=== PATIENT | male | born 1975 | race Two or more races ===

== ENCOUNTER 2022-07-07 16:47 | Emergency (ER) | payer OTHER, SELFPAY ==
--- NOTE | ~2022-07-07 | CT_ITS ---
EXAMINATION: CT ABDOMEN AND PELVIS WITHOUT CONTRAST CLINICAL INFORMATION: Left flank pain COMPARISON: None TECHNIQUE: Multidetector volumetric imaging was performed from the superior aspect of the liver through the pubic symphysis. Sagittal and coronal reformatted images were obtained on the technologist's workstation. This CT examination was performed using dose optimization techniques as appropriate, variously including the following: *Automated exposure control *Adjustment of mA and/or kV according to patient size (this includes techniques or standardized protocols for targeted exams where dose is matched to indication/reason for exam; i.e. extremities or head) *Use of iterative reconstruction technique DLP: 794 mGy-cm FINDINGS: LUNG BASES: The visualized lung bases are unremarkable. Borderline cardiomegaly. No coronary artery calcification. LIVER, GALLBLADDER, AND BILIARY TREE: The liver is normal in size, shape, and attenuation. No focal hepatic lesion or biliary ductal dilatation is present. The gallbladder is unremarkable with no evidence of radiopaque gallstones, gallbladder wall thickening, or obvious pericholecystic inflammatory changes. PANCREAS: Unremarkable. SPLEEN: Unremarkable. ADRENAL GLANDS: Unremarkable. KIDNEYS AND URETERS: 1-2 mm calcification in the right mid kidney likely a nonobstructing calculus. No right hydronephrosis. There is moderate left hydroureteronephrosis and asymmetric left perinephric fluid and fat stranding. The dilated tortuous left ureter is followed to the urinary bladder where there is a 4 mm left ureterovesical junction calculus. BLADDER: Unremarkable. GASTROINTESTINAL TRACT: Stomach and small bowel are nondilated. No evidence of colitis or diverticulitis. ABDOMINAL WALL: Fat-containing left inguinal hernia. LYMPH NODES: Normal. VASCULAR: Unremarkable. PELVIC VISCERA: Unremarkable. OSSEOUS STRUCTURES: Multilevel degenerative changes. CT/CT abdomen pelvis wo IV con IMPRESSION: 4 mm left ureterovesical junction calculus results in moderate left hydroureteronephrosis and asymmetric left perinephric fluid and fat stranding. Fleischner guidelines were followed.
[2022-07-07 17:38] LABS: MANUAL DIFF FLAG NO
[2022-07-07 17:41] LABS: Appearance Urine Clear; Color Urine Yellow; Glucose Urine UA Negative (Negative); Leukocyte Esterase Urine Negative (Negative); Nitrite Urine Negative (Negative); Specific Gravity - Urine 1.015 (1.005-1.025); Urine Blood Negative (Negative); Urine Ketones Negative (Negative); Urine Protein Negative (Neg-Trace)
[2022-07-07 17:43] LABS: Basophils Percent Auto 0.3 % (0-2); Eosinophils Percent Auto 0.3 % (0-4); Hematocrit 43.8 % (42.0-52.0); Hemoglobin 14.6 g/dl (14.0-18.0); Imm Gran Abs Auto 0.02 X10*3/uL (0.00-0.03); Imm Gran Pct Auto 0.3 % (0.0-0.4); Lymphocytes Absolute Auto 0.5 X10*3/uL (1.2-4.9); Lymphocytes Percent Auto 6.4 % (20-40); Mean Corpuscular HGB Conc 33.3 g/dl (31.0-36.0); Mean Corpuscular Hemoglobin 30.1 pg (27.0-33.0); Mean Corpuscular Volume 90.3 fL (80.0-98.0); Mean Platelet Volume 12.1 fL (9.4-12.4); Monocytes Absolute Auto 0.3 X10*3/uL (0.1-1.2); Monocytes Percent Auto 4.2 % (2-11); Neutrophils Absolute Auto 6.7 x10*3/uL (2.0-8.3); Neutrophils Percent Auto 88.5 % (45-73); Platelet Count 213 X10*3/uL (160-400); Red Blood Count 4.85 X10*6/uL (4.60-5.80); White Blood Count 7.5 X10*3/uL (4.8-10.8)
[2022-07-07 17:57] LABS: Alanine Aminotransferase 129 U/L (0-40); Albumin Level 4.3 g/dL (3.5-5.0); Alkaline Phosphatase 92 U/L (39-117); Anion Gap 10 (12-20); Aspartate Amino Transferase 64 U/L (5-37); Bilirubin Total 0.7 mg/dL (0.0-1.0); Blood Urea Nitrogen 19 mg/dL (9-16); Calcium 9.6 mg/dL (8.4-10.2); Carbon Dioxide 24 mmol/L (22-29); Chloride 111 mmol/L (96-108); Estimated Glomerular Filt Rate 57; Glucose Random 110 mg/dL (60-115); Potassium 5.2 mmol/L (3.3-5.1); Sodium 140 mmol/L (135-145); Total Protein 7.2 g/dL (6.5-8.0)
[2022-07-07 17:58] VITALS: BP 147/67; PULSE 70; RESP 16; TEMP 36.6; O2SAT 97; BMI 28.0
[2022-07-07] MEDS: Sodium Zirconium Cyclosilicate 5 GM POWD.PACK PO (22:00)
--- NOTE | 2022-07-07 22:02 | ED_ITS ---
HPI - Abdominal Pain General Chief Complaint: Abdominal Pain Stated Complaint: ?Kidney stones Time Seen by Provider: 07/07/22 21:58 Source: patient Mode of arrival: ambulatory Limitations: no limitations History of Present Illness HPI narrative: 47 yo male with hx of kidney stones here with c/o L flank pain starting in the afternoon that improved after taking motrin. He had some nausea with the pain. He notes the pain returned. He denies any other PMH but doesn't go to the doctors. He has not had a fever. He denies a change in bowel or bladder habits. MD elicited complaint: flank pain Pertinent past history: kidney stones Onset (ago): hour(s) (7) Pain Consistency: intermittent Location: L flank Severity: severe Quality: stabbing Radiation: L flank Migration to: no migration Exacerbating factors: nothing Relieving factors: nothing Context: history of similar episodes Associated symptoms: nausea Treatments prior to arrival: NSAIDs Related Data Previous Rx's Medication Instructions Recorded morphine 15 mg immediate release 15 mg PO TID PRN pain #12 tabs 07/07/22 tablet ondansetron 4 mg disintegrating 4 mg PO Q8H PRN nausea and 07/07/22 tablet vomiting #20 tabs tamsulosin 0.4 mg capsule 0.4 mg PO DAILY 7 days #7 caps 07/07/22 Allergies Allergy/AdvReac Type Severity Reaction Status Date / Time No Known Allergies Allergy Verified 07/07/22 17:57 Review of Systems Review of Systems Constitutional : No Fever, No Chills ENT/Mouth : No sore throat Eyes: No Eye Pain, No Swelling, No Redness Cardiovascular : No Chest Pain, No SOB Respiratory : No Cough, No Sputum, No Wheezing Gastrointestinal : positive Nausea, no Vomiting, No Diarrhea, positive abdominal pain Genitourinary : no Dysuria, no urinary frequency, no Hematuria, positive Flank Pain, no hesitancy Musculoskeletal : No joint pain, No Myalgias Skin : No Skin Lesions, No rash Neuro : No Weakness, No Numbness, No Headache Psych : No Anxiety/Panic, No Depression Heme/Lymph: No Bruising, No Lymphadenopathy Endocrine : No Polyuria, No Polydipsia All other systems reviewed and are negative [facility] Past Medical History Attestation statement: The following information was validated with the patient. Medical History Renal colic Social History Social History (Updated 07/07/22 @ 22:14 by Cinthia Cesar DO) Patient Tobacco Use Status: Never used Tobacco Smoked in Last 30 Days: No Use of substances other than those prescribed or required for medical reasons: No Advance Directives: No Physical Exam ED Vital Signs: Vital Signs - 24 hr 07/07/22 17:58 07/07/22 22:09 Temperature 98 F 98.1 F Pulse Rate 70 61 Respiratory Rate 16 14 Blood Pressure 147/67 H 166/87 H Pulse Oximetry 97 97 Oxygen Delivery Method Room Air Room Air BMI result Body Mass Index 28.0 Appearance: Alert. Oriented X3. No acute distress. Eyes: Pupils equal, round and reactive to light. ENT: Pharynx normal. Neck: Normal inspection. Neck supple. CVS: Normal heart rate and rhythm. Pulses normal. Respiratory: No respiratory distress. Breath sounds normal. Abdomen: Soft and mild L flank ttp no rebound or guarding Skin: Skin warm and dry. Normal skin color. Normal skin turgor. Extremities: No lower extremity edema. No calf ttp Neuro: Oriented X 3. No motor deficit. No sensory deficit. Course Course Course Narrative: no vomiting, not toxic, well hydrated, 4mm UVJ stone - can be managed as outpatient will start on pain medications and refer to Urology Medical Decision Making Medical Decision Making MDM Narrative: 47 yo male with hx of renal colic here with L flank pain and nausea. At this time given presentation there is a concern for renal colic again. He will need labs, UA, CT scan for obstructing stone. PO medications. He is not toxic appearing and has no rebound on exam. He has no fevers or signs of sepsis. Differential Diagnoses: Differential diagnosis (renal colic, diverticulitis) Lab Attestation: I reviewed the patient's lab results. Independent historian (e.g., spouse, EMS, friend): Independent historian (e.g., spouse, EMS, friend) Clinical information obtained from an independent historian. History obtained from or confirmed by: Spouse Medications Administered Discontinued Medications Generic Name Dose Route Start Last Admin Trade Name Freq PRN Reason Stop Dose Admin Hydromorphone HCl 2 mg 07/07/22 23:04 07/07/22 23:17 Hydromorphone Hcl 2 Mg/Ml Vial IM 07/07/22 23:05 2 mg ONCE ONE Administration Protocol Morphine Sulfate 15 mg 07/07/22 22:09 07/07/22 22:25 Morphine Sulfate Immed Release 15 Mg Tablet PO 07/07/22 22:10 15 mg ONCE ONE Administration Ondansetron HCl 4 mg 07/07/22 22:09 07/07/22 22:26 Ondansetron Odt 4 Mg Tab.Rapdis TRANSLINGU 07/07/22 22:10 4 mg ONCE ONE Administration Sodium Zirconium Cyclosilicate 5 gm 07/07/22 21:38 07/07/22 22:00 Sodium Zirconium Cyclosilicate 5 Gm Powd.Pack PO 07/07/22 21:39 5 gm ONCE ONE Administration Tamsulosin HCl 0.4 mg 07/07/22 22:53 07/07/22 23:00 Tamsulosin Hcl 0.4 Mg Capsule PO 07/07/22 22:54 0.4 mg ONCE ONE Administration will send home with PO morphine for pain control of renal colic Discharge Plan Discharge Clinical Impression: Ureterolithiasis, Elevated liver enzymes Patient Disposition: Home, Self-Care Instructions: Renal Colic (ED) Additional Instructions: alexi por lo menos 40 onzas de agua al d?a. regresa por dolor intenso, fiebre, v?mitos, incapacidad para orinar. si el dolor no se resuelve, llame al ur?logo el lunes. [place] los medicamentos que le hayan dado. Tambi?n puede agregar tylenol, no exceda los 4 gramos por d?a. Prescriptions: New tamsulosin 0.4 mg capsule 0.4 mg PO DAILY 7 Days Qty: 7 0RF morphine 15 mg tablet 15 mg PO TID PRN (Reason: pain) Qty: 12 0RF Rx Instructions: partial fill okay; Partial Fill upon patient request. ondansetron 4 mg tablet,disintegrating 4 mg PO Q8H PRN (Reason: nausea and vomiting) Qty: 20 0RF Referrals: Miko Lora MD [Physician] - 07/10/22 (if not better) Stand Alone Forms: Work/School Release Interventions: ED Discharge Assessment Last Done: 07/07/22 23:21 Discharge Date/Time: 07/07/22 23:22 Print Language: Estonian
[2022-07-07 22:09] VITALS: BP 166/87; PULSE 61; RESP 14; TEMP 36.7; O2SAT 97
[2022-07-07] MEDS: Morphine Sulfate Immed Release 15 MG TABLET PO (22:25)
[2022-07-07] MEDS: Ondansetron ODT 4 MG TAB.RAPDIS TRANSLINGU (22:26)
[2022-07-07] MEDS: Tamsulosin HCL 0.4 MG CAPSULE PO (23:00)
[2022-07-07] MEDS: HYDROmorphone HCl 2 MG/ML VIAL IM (23:17)
--- NOTE | 2022-07-07 23:21 | PC.NURSE ---
Discharge instructions reviewed with pt. Pt verbalizes understanding.
== END 2022-07-07 23:22 | disposition home or self-care (01) ==
PROVIDERS: Emergency Provider Emergency Medicine
DX: N20.1 Calculus of ureter (principal); R79.89 Other specified abnormal findings of blood chemistry; Z79.899 Other long term (current) drug therapy
CPT/HCPCS: 36415; 74176; 80053; 81003; 85025; 99284; J1170

== ENCOUNTER → 2022-07-28 14:21 | Outpatient (BNVA) | payer OTHER, SELFPAY | PROVIDERS: Visit Provider Nurse Practitioner Family | DX: N20.0 Calculus of kidney (principal); R10.9 Unspecified abdominal pain | CPT/HCPCS: 99202 ==

== ENCOUNTER 2022-09-04 14:51 | Outpatient (REF) | payer OTHER, SELFPAY ==
--- NOTE | ~2022-09-04 | US_ITS ---
EXAMINATION: US RETROPERITONEAL LIMITED (RENAL ONLY) CLINICAL INFORMATION: Calculus of kidney. COMPARISON: None TECHNIQUE: Routine grayscale imaging of kidneys is performed. FINDINGS: RIGHT KIDNEY: 12.8 x 5.7 x 6.7 cm (SAG x AP x TRV). The kidney is normal in size, contour, and echogenicity. Renal cortical thickness is normal. No calculi or focal parenchymal lesions. There are mild dilated calyces versus mild hydronephrosis. LEFT KIDNEY: 10.3 x 5.7 x 6.1 cm (SAG x AP x TRV). The kidney is normal in size, contour, and echogenicity. Renal cortical thickness is normal. No calculi or focal parenchymal lesions. No hydronephrosis. US/US renal BI IMPRESSION: 1. Mild right hydronephrosis versus dilated calyces. No echogenic stones seen. 2. The left kidney is unremarkable.
== END 2022-09-04 14:52 | disposition home or self-care (01) ==
LOC: HO.US 14:51
PROVIDERS: Visit Provider Urology
DX: N20.0 Calculus of kidney (principal)
CPT/HCPCS: 76775

== ENCOUNTER → 2022-10-11 13:35 | Outpatient (BNVA) | payer OTHER, SELFPAY | PROVIDERS: Visit Provider Nurse Practitioner Family ==

== ENCOUNTER 2023-04-13 08:59 | Outpatient (REF) | payer OTHER, SELFPAY ==
--- NOTE | ~2023-04-13 | US_ITS ---
EXAMINATION: US RETROPERITONEAL LIMITED (RENAL ONLY) CLINICAL INFORMATION: Calculus of kidney. COMPARISON: Renal ultrasound 09/04/2022. CT of abdomen and pelvis 07/07/2022. TECHNIQUE: Real-time imaging of the kidneys. FINDINGS: RIGHT KIDNEY: 12.9 x 6.4 x 6.5 cm (SAG x AP x TRV). No renal calculi. Limited visualization. 1.3 x 1.3 x 0.8 cm anechoic collection midpole right kidney. Differential considerations include mild pelvocaliectasis and/or peripelvic cyst. LEFT KIDNEY: 13.3 x 6.0 x 5.3 cm (SAG x AP x TRV). Possible calcified vessel lower pole left kidney versus renal calculus. Limited visualization. Left renal peripelvic anechoic structures, largest measured lower pole 1.5 x 2.7 x 1.5 cm, difficult to fully characterize due to limited visualization. Differential considerations include mild pelvocaliectasis and/or peripelvic cysts. US/US renal BI IMPRESSION: 1. Anechoic collection in the peripelvic regions of the bilateral kidneys. Differential considerations include mild pelvocaliectasis and/or peripelvic cysts. CT scan could be considered for further evaluation. 2. No renal calculi identified. 3. Limited visualization.
== END 2023-04-13 09:00 | disposition home or self-care (01) ==
LOC: HO.US 08:59
PROVIDERS: Visit Provider Nurse Practitioner Family
DX: N20.0 Calculus of kidney (principal)
CPT/HCPCS: 76775

== ENCOUNTER 2023-05-04 10:32 | Outpatient (AMB) | payer OTHER, SELFPAY ==
--- NOTE | 2023-05-04 10:37 | MHC.OFFVIS ---
Intake Intake Visit Reasons: 6m follow up/US(set) Intake Note: Patient is present for follow up for ultrasound results/kidney stones (imaging 04/13/23) Urology Medications: none Blood Thinner: none Lather Apprentice Required: Yes Information Interpreted: non-clinical & clinical Accompanied by: Unknown Allergies No Known Allergies Allergy (Verified 05/04/23 11:23) Medication List - Last Reconciled 05/04/23 by TRISTEN Moore No Known Home Meds HPI HPI Comments History of Present Illness Details Guillermo is a pleasant 48 year Beninese speaking male patient was accompanied by his girlfriend at today's visit. He presents to the office today for follow-up of his nephrolithiasis. Recent renal ultrasound results reviewed with the patient today. Right kidney with no calculi. 1.3 x 1.3 x 0.8 cm anechoic collection midpole right kidney. Differential considerations include mild pelvocaliectasis and/or peripelvic cyst. Left kidney possibly calcified vessels lower pole left kidney versus renal calculus. Limited visualization. Left renal peripelvic anechoic structures, largest measured lower pole 1.5 x 2.7 x 1.5 cm, difficult to fully characterize due to limited visualization. Differential considerations include mild pelvocaliectasis and/or peripelvic cysts. CT scan could be considered for further evaluation per radiology report. In discussion with the patient today he reports noting episodes of gross hematuria with left-sided flank pain radiating to lower abdominal area approximately 2 weeks ago recently however did not seek medical treatment as he had this follow-up scheduled. He reports gross hematuria he had been experiencing has since subsided over the last 1-2 weeks however he continues with intermittent left-sided flank pain radiating to lower abdominal area. He currently denies any bothersome urinary issues or concerns. He denies urinary urgency, urinary frequency, incontinence, nocturia, hematuria, dysuria, foul smelling urine, changes to urinary stream, fever, and or chills. He is happy with his current voiding parameters. Patient with a history of nephrolithiasis discussed possibility of passage of stone given patient's symptoms. Discussed at length potential causes for gross hematuria. Discussed obtaining CT urogram, urine cytology, and in office cystoscopy for further assessment evaluation. Urinalysis today with microscopic hematuria otherwise within normal limits. [facility] Medical History Renal colic Social History Patient Tobacco Use Status: Never used Tobacco Review of Systems Const Reports no additional complaints Eyes Reports no additional complaints ENT Reports no additional complaints Card Reports no additional complaints Resp Reports no additional complaints GI Reports no additional complaints Reports as per HPI Musc Reports no additional complaints Neuro Reports no additional complaints Psych Reports no additional complaints Endo Reports no additional complaints Physical Exam Const General: cooperative Orientation/consciousness: patient oriented x3 Resp Effort & Inspection: able to speak in complete sentences Neuro General: patient oriented x3 Psych Mental Status: mental status grossly normal Speech and movement: Clear speech present Affect: normal affect Attitude: cooperative Thought process: Normal thought process present Thought content: Normal thought content present Insight: Good insight present (Psych) Judgement: Good judgement present (Psych) Results AMB Urinalysis, Automated UA Leukoctes 0 Aleksey/uL Last Edit by Cristopher Gaines on 05/04/23 11:02 UA Nitrite Negative Last Edit by Cristopher Gaines on 05/04/23 11:02 UA Urobilinogen 0.2 mg/dL Last Edit by Cristopher Gaines on 05/04/23 11:02 UA Protein 15 mg/dL Last Edit by Cristopher Gaines on 05/04/23 11:02 UA pH 5.5 Last Edit by Cristopher Gaines on 05/04/23 11:02 UA Blood 200 Alli/uL Last Edit by Cristopher Gaines on 05/04/23 11:02 UA Specific [place]anger 1.030 Last Edit by Cristopher Gaines on 05/04/23 11:02 UA Ketone Negative Last Edit by Cristopher Gaines on 05/04/23 11:02 UA Bilirubin 0 mg/dL Last Edit by Cristopher Gaines on 05/04/23 11:02 UA Glucose 0 mg/dL Last Edit by Cristopher Gaines on 05/04/23 11:02 Results Reviewed Results Reviewed: Laboratory Last Values Urine pH (Auto) 5.5 05/04/23 10:43 Specific [place]anger (Auto) 1.030 05/04/23 10:43 Urine Protein (Auto) 15 mg/dL 05/04/23 10:43 Glucose (UA)(Auto) 0 mg/dL 05/04/23 10:43 Urine Ketones (Auto) Negative 05/04/23 10:43 Urine Blood (Auto) 200 Alli/uL 05/04/23 10:43 Urine Nitrite (Auto) Negative 05/04/23 10:43 Urine Bilirubin (Auto) 0 mg/dL 05/04/23 10:43 Urine Urobilinogen (Auto) 0.2 mg/dL 05/04/23 10:43 Leukocyte Esterase (Auto) 0 Aleksey/uL 05/04/23 10:43 Ordering Physician: Tamara Guzman Date of Service: 04/13/23 EXAMINATION: US RETROPERITONEAL LIMITED (RENAL ONLY) FINDINGS: RIGHT KIDNEY: 12.9 x 6.4 x 6.5 cm (SAG x AP x TRV). No renal calculi. Limited visualization. 1.3 x 1.3 x 0.8 cm anechoic collection midpole right kidney. Differential considerations include mild pelvocaliectasis and/or peripelvic cyst. LEFT KIDNEY: 13.3 x 6.0 x 5.3 cm (SAG x AP x TRV). Possible calcified vessel lower pole left kidney versus renal calculus. Limited visualization. Left renal peripelvic anechoic structures, largest measured lower pole 1.5 x 2.7 x 1.5 cm, difficult to fully characterize due to limited visualization. Differential considerations include mild pelvocaliectasis and/or peripelvic cysts. US/US renal BI IMPRESSION: 1. Anechoic collection in the peripelvic regions of the bilateral kidneys. Differential considerations include mild pelvocaliectasis and/or peripelvic cysts. CT scan could be considered for further evaluation. 2. No renal calculi identified. 3. Limited visualization. Assessment & Plan Assessment & Plan (1) Flank pain: Code(s): R10.9 - Unspecified abdominal pain (2) Nephrolithiasis: Code(s): N20.0 - Calculus of kidney (3) Gross hematuria: Code(s): R31.0 - Gross hematuria Plan In office urinalysis results reviewed with the patient today; as noted above; will send for urine cytology Will obtain CT urogram for further assessment evaluation. BUN and creatinine ordered for imaging. Discussed, educated, stressed the importance of drinking plenty of water daily. Discussed seeking medical treatment if symptoms arise Patient currently denies any bothersome urinary issues. Discussed at length potential causes for gross hematuria. Start Flomax and prednisone as discussed and prescribed. Discussed possible near future in office cystoscopy if gross hematuria reoccurs. Follow-up in 1-2 weeks with with imaging and labs to be completed prior; or sooner with any issues, concerns, and or questions. Orders: Orders CT urogram 05/04/23 R31.0 - Gross hematuria Blood Urea Nitrogen 05/04/23 N20.0 - Calculus of kidney, R10.9 - Unspecified abdominal pain, R31.0 - Gross hematuria AMB Urinalysis Automated 05/04/23 Z13.9 - Encounter for screening, unspecified Creatinine 05/04/23 N20.0 - Calculus of kidney, R10.9 - Unspecified abdominal pain, R31.0 - Gross hematuria Urine Cytology 05/04/23 R31.0 - Gross hematuria Medications: New prednisone 20 mg PO daily 5 days 5 tabs 0RF tamsulosin 0.4 mg PO daily 14 days 14 caps 1RF Patient Instructions: The patient had an opportunity to ask questions regarding the treatment plan. All questions were answered. Physical exam, labs, and imaging were discussed and reviewed in detail. As well as risks, benefits, and discussion of treatment choices. No major barriers to understanding were identified. The patient expressed understanding and agreement with the above treatment plan. The patient was made aware they should contact our office by phone for worsening of their current condition, the appearance of new symptoms, or with any questions or concerns. Compliance is encouraged with any medications and follow up testing that is ordered. It is a privilege to be allowed the opportunity to participate in? your urological care.? Again, if you have any questions or concerns If you have any questions or concerns please do not hesitate to contact me. The office is [phone]. This note is constructed using voice recognition software. While every effort has been made to ensure accuracy paper coating machine operator errors may have been included. Yours sincerely, TRISTEN Moore Coding Level of Care Code Est Pt Level 4 (01398) Diagnoses Flank pain R10.9 Nephrolithiasis N20.0 Gross hematuria R31.0
== END 2023-05-04 11:26 | disposition home or self-care (01) ==
PROVIDERS: Visit Provider Nurse Practitioner Family
DX: R10.9 Unspecified abdominal pain (principal); N20.0 Calculus of kidney; R31.0 Gross hematuria
CPT/HCPCS: 99214

== ENCOUNTER 2023-05-04 10:32 | Outpatient (REF) | payer OTHER, SELFPAY ==
[2023-05-04 13:51] LABS: Blood Urea Nitrogen 21 mg/dL (9-16); Estimated Glomerular Filt Rate > 60
== END 2023-05-04 10:33 | disposition home or self-care (01) ==
LOC: HO.LAB 10:32
PROVIDERS: Visit Provider Nurse Practitioner Family
DX: R10.9 Unspecified abdominal pain (principal); N20.0 Calculus of kidney; R31.0 Gross hematuria
CPT/HCPCS: 36415; 81003; 82565; 84520; 99212

== ENCOUNTER 2023-05-04 16:17 | Outpatient (REF) | payer OTHER, SELFPAY | END 2023-05-04 16:18 | disposition home or self-care (01) | LOC: HO.LNP 16:17 | PROVIDERS: Visit Provider Nurse Practitioner Family | DX: R31.0 Gross hematuria (principal) | CPT/HCPCS: 88112 ==

== ENCOUNTER 2023-06-08 08:46 | Outpatient (REF) | payer OTHER, SELFPAY ==
--- NOTE | ~2023-06-08 | CT_ITS ---
EXAMINATION: CT ABDOMEN AND PELVIS WITHOUT AND WITH CONTRAST CLINICAL INFORMATION: Gross hematuria. COMPARISON: CT imaging from 07/07/2022. Renal ultrasound from 04/13/2023. TECHNIQUE: Noncontrast CT of the abdomen and pelvis is performed followed by split bolus contrast-enhanced images using 85 mL Omnipaque 350 contrast.? Postcontrast imaging is performed during the combined nephrogram and excretion phase. Sagittal and coronal reformatted images were obtained on the technologist's workstation for both the precontrast and postcontrast phases. This CT examination was performed using dose optimization techniques as appropriate, variously including the following: *Automated exposure control *Adjustment of mA and/or kV according to patient size (this includes techniques or standardized protocols for targeted exams where dose is matched to indication/reason for exam; i.e. extremities or head) *Use of iterative reconstruction technique DLP: 1054 mGy-cm FINDINGS: LUNG BASES: No pulmonary consolidation or pleural effusion. HEPATOBILIARY: Liver has normal size and contour. A simple cyst in the left lobe of liver measures up to 1.3 cm maximum dimension. Gallbladder has a normal appearance. No radiopaque stones, wall thickening or pericholecystic fluid. No dilated bile ducts. PANCREAS: No edema, pancreatic ductal dilatation or mass. SPLEEN: Normal. ADRENAL GLANDS: Normal. KIDNEYS AND URETERS: Kidneys are normal in size and enhance symmetrically. No renal stones or hydronephrosis. No perinephric edema or perinephric fluid collection. There are clustered simple peripelvic cysts of the left kidney. No renal imaging follow-up is recommended for simple cysts. There is normal contrast excretion into the nondilated collecting systems. There are segments of each ureter that are not well opacified on pyelographic phase images likely from peristalsis at time of imaging. There is no overt urothelial thickening. Two stones are present within the distal left ureter just proximal to the ureterovesical junction. The more proximal stone measures up to 0.4 cm maximum dimension and distal stone 0.7 cm maximum dimension. Despite presence of these stones, there is no associated hydroureter. BLADDER: Normal. No calculi or wall thickening. BOWEL AND PERITONEUM: Stomach is unremarkable. No dilated loops of bowel. No overt bowel wall thickening or mesenteric fat stranding. No free fluid or pneumoperitoneum. ABDOMINAL WALL: No acute abnormality. Again noted is fat within the left inguinal canal which has appearance of the so-called canal lipoma. There is no visible herniation of peritoneal fat into the inguinal canal. VASCULATURE: Abdominal aorta is normal in its branches are widely patent. Inferior vena cava and renal veins are normal. LYMPH NODES: No pathologic sized lymph nodes in the abdomen or pelvis. No inguinal lymphadenopathy. PELVIC VISCERA: Mildly enlarged prostate gland measures 4.5 x 3.8 x 4.7 cm. No pelvic free fluid. MUSCULOSKELETAL: Mild to moderate multilevel discovertebral degenerative change of the lumbar spine. There is facet arthropathy at L5-S1. Minimal degenerative retrolisthesis at L1-L2, L2-L3 and L3-L4. CT/CT urogram IMPRESSION: * Although two stones are present within the distal ureter just proximal to the UV junction, there is no associated hydroureter or hydronephrosis. No renal stones. * No evidence of an inflammatory or neoplastic disease process along urinary tracts. * There is mild prostatomegaly.
[2023-06-08] MEDS: iohexoL 350 MG/ML 100 ML INFUS..BTL IV (09:55)
== END 2023-06-08 08:47 | disposition home or self-care (01) ==
LOC: HO.CT 08:46
PROVIDERS: Visit Provider Nurse Practitioner Family
DX: R31.0 Gross hematuria (principal)
CPT/HCPCS: 74178; Q9967

== ENCOUNTER 2023-06-19 09:32 | Outpatient (AMB) | payer OTHER, SELFPAY ==
--- NOTE | 2023-06-19 09:33 | MHC.OFFVIS ---
Intake Intake Visit Reasons: 2w/CT(set) Intake Note: Patient is present for follow up for ct scan results/kidney stones (imaging 06/08/23) Urology Medications: none Blood Thinner: none Chief Medical Officer Required: Yes Information Interpreted: non-clinical & clinical Accompanied by: Unknown Allergies No Known Allergies Allergy (Verified 06/19/23 10:09) Medication List - Last Reconciled 06/19/23 by TRISTEN Moore prednisone 20 mg PO DAILY 5 days tamsulosin 0.4 mg PO BEDTIME 14 days tramadol 50 mg PO Q8H PRN HPI HPI Comments History of Present Illness Details Guillermo is a pleasant 48 year Turkmen speaking male patient who is accompanied by his girlfriend at today's visit. He presents to the office today for follow-up of his nephrolithiasis. Recent CT KUB UB results reviewed with the patient today. Kidneys are normal in size enhance symmetrically. There are clustered simple peripelvic cysts of the left kidney. No renal imaging follow-up is recommended for simple cysts per radiology report. There is normal contrast excretion into the nondilated collecting systems. There are segments of each ureter that are not well opacified on pyelographic phase images likely from peristalsis at time of imaging. There is no overt urothelial thickening. Two stones are present within the distal left ureter just proximal to the ureterovesical junction. The more proximal stone measures up to 0.4 cm maximum dimension and distal stone 0.7 cm maximum dimension. Despite presence of these stones, there is no associated hydroureter. The bladder is normal with no calculi or wall thickening. When asked patient reports to be experiencing ongoing left-sided flank pain for over 1 month now. However, states he has noted over the last 1-2 days pain is more sharp and ongoing. Discussed at length surgical intervention regarding stones. Discussed risks and benefits of surgical intervention; cystoscopy, retrograde, ureteroscopy, possible lithotripsy/stone basketing and stent on the left side. He denies incontinence, hematuria, dysuria, foul-smelling urine, changes to urinary stream, fever, and or chills. In office urinalysis results reviewed with the patient today. He otherwise offers no other issues or concerns at this time. [facility] Medical History Renal colic Patient Tobacco Use Status: Never used Tobacco Review of Systems Const Reports no additional complaints Eyes Reports no additional complaints ENT Reports no additional complaints Card Reports no additional complaints Resp Reports no additional complaints GI Reports no additional complaints Reports as per HPI Musc Reports no additional complaints Neuro Reports no additional complaints Psych Reports no additional complaints Endo Reports no additional complaints Physical Exam Const General: cooperative Orientation/consciousness: patient oriented x3 Resp Effort & Inspection: able to speak in complete sentences General: Yes CVA tenderness on the left Back/Spine/Pelvis Back: CVA tenderness Neuro General: patient oriented x3 Psych Mental Status: mental status grossly normal Speech and movement: Clear speech present Affect: normal affect Attitude: cooperative Thought process: Normal thought process present Thought content: Normal thought content present Insight: Good insight present (Psych) Judgement: Good judgement present (Psych) Results AMB Urinalysis, Automated UA Leukoctes 0 Aleksey/uL Last Edit by [employer] on 06/19/23 09:57 UA Nitrite Negative Last Edit by [employer] on 06/19/23 09:57 UA Urobilinogen 0.2 mg/dL Last Edit by [employer] on 06/19/23 09:57 UA Protein 30 mg/dL Last Edit by [employer] on 06/19/23 09:57 UA pH 6.0 Last Edit by [employer] on 06/19/23 09:57 UA Blood 25 Alli/uL Last Edit by [employer] on 06/19/23 09:57 UA Specific [place] 1.030 Last Edit by [employer] on 06/19/23 09:57 UA Ketone Negative Last Edit by [employer] on 06/19/23 09:57 UA Bilirubin 0 mg/dL Last Edit by [employer] on 06/19/23 09:57 UA Glucose 0 mg/dL Last Edit by [employer] on 06/19/23 09:57 Results Reviewed Results Reviewed: Laboratory Last Values Urine pH (Auto) 6.0 06/19/23 09:38 Specific [place] (Auto) 1.030 06/19/23 09:38 Urine Protein (Auto) 30 mg/dL 06/19/23 09:38 Glucose (UA)(Auto) 0 mg/dL 06/19/23 09:38 Urine Ketones (Auto) Negative 06/19/23 09:38 Urine Blood (Auto) 25 Alli/uL 06/19/23 09:38 Urine Nitrite (Auto) Negative 06/19/23 09:38 Urine Bilirubin (Auto) 0 mg/dL 06/19/23 09:38 Urine Urobilinogen (Auto) 0.2 mg/dL 06/19/23 09:38 Leukocyte Esterase (Auto) 0 Aleksey/uL 06/19/23 09:38 Date of Service: 06/08/23 EXAMINATION: CT ABDOMEN AND PELVIS WITHOUT AND WITH CONTRAST FINDINGS: LUNG BASES: No pulmonary consolidation or pleural effusion. HEPATOBILIARY: Liver has normal size and contour. A simple cyst in the left lobe of liver measures up to 1.3 cm maximum dimension. Gallbladder has a normal appearance. No radiopaque stones, wall thickening or pericholecystic fluid. No dilated bile ducts. PANCREAS: No edema, pancreatic ductal dilatation or mass. SPLEEN: Normal. ADRENAL GLANDS: Normal. KIDNEYS AND URETERS: Kidneys are normal in size and enhance symmetrically. No renal stones or hydronephrosis. No perinephric edema or perinephric fluid collection. There are clustered simple peripelvic cysts of the left kidney. No renal imaging follow-up is recommended for simple cysts. There is normal contrast excretion into the nondilated collecting systems. There are segments of each ureter that are not well opacified on pyelographic phase images likely from peristalsis at time of imaging. There is no overt urothelial thickening. Two stones are present within the distal left ureter just proximal to the ureterovesical junction. The more proximal stone measures up to 0.4 cm maximum dimension and distal stone 0.7 cm maximum dimension. Despite presence of these stones, there is no associated hydroureter. BLADDER: Normal. No calculi or wall thickening. BOWEL AND PERITONEUM: Stomach is unremarkable. No dilated loops of bowel. No overt bowel wall thickening or mesenteric fat stranding. No free fluid or pneumoperitoneum. ABDOMINAL WALL: No acute abnormality. Again noted is fat within the left inguinal canal which has appearance of the so-called canal lipoma. There is no visible herniation of peritoneal fat into the inguinal canal. VASCULATURE: Abdominal aorta is normal in its branches are widely patent. Inferior vena cava and renal veins are normal. LYMPH NODES: No pathologic sized lymph nodes in the abdomen or pelvis. No inguinal lymphadenopathy. PELVIC VISCERA: Mildly enlarged prostate gland measures 4.5 x 3.8 x 4.7 cm. No pelvic free fluid. MUSCULOSKELETAL: Mild to moderate multilevel discovertebral degenerative change of the lumbar spine. There is facet arthropathy at L5-S1. Minimal degenerative retrolisthesis at L1-L2, L2-L3 and L3-L4. IMPRESSION: * Although two stones are present within the distal ureter just proximal to the UV junction, there is no associated hydroureter or hydronephrosis. No renal stones. * No evidence of an inflammatory or neoplastic disease process along urinary tracts. * There is mild prostatomegaly. Assessment & Plan Assessment & Plan (1) Flank pain: Code(s): R10.9 - Unspecified abdominal pain (2) Nephrolithiasis: Code(s): N20.0 - Calculus of kidney Plan: Ureteroscopy We discussed the nature of the decision and reasonable alternatives for performing ureteroscopy. Options such as medical therapy were discussed. Interventions include chemical dissolution, ESWL, ureteroscopy with laser lithotripsy and stent placement, PCNL. The relative uncertainties and benefits related to each alternate procedure were adequately discussed. General surgical risks including, but not limited to - pain, bleeding, infection, myocardial infarction, pulmonary embolus, deep vein thrombosis and cerebrovascular accident which may result in further hospitalization were discussed.? Full disclosure of the procedure as well as all major risks, benefits and complications were discussed including but not limited to damage to the urethra, bladder and kidney infection, damage to the ureter, stent migration or malposition, scarring to the renal pelvis, remnant stone fragments, subsequent stone passage with need for secondary procedures. The overall secondary procedure rate is approximately 10-15%.? The overall clearance rate is approximately 90-95%. Success of the procedure in the short-term does not necessarily guarantee that long-term success will be maintained. Suitable follow up will need to be maintained. The patient showed understanding of discussion and wishes to proceed with - cystoscopy, retrograde, ureteroscopy, possible lithotripsy/stone basketing and stent on the left side Plan In office urinalysis results reviewed with the patient today; as noted above. Recent CT results reviewed with the patient and his significant other at today's office visit; as noted above Discussed at length surgical intervention; risks and benefits Take Flomax and prednisone as discussed and prescribed Start tramadol as needed for pain Discussed at length potential causes of nephrolithiasis. Discussed and stressed the importance of drinking plenty of water daily. Will schedule for surgical procedure as discussed Follow-up status post surgical procedure per Dr. Zhu's order; or sooner with any issues, concerns, and or questions. Orders: Orders AMB Urinalysis Automated 06/19/23 Z13.9 - Encounter for screening, unspecified Medications: New prednisone 20 mg PO DAILY 5 tabs 0RF 5 days N20.0 - Calculus of kidney tramadol 50 mg PO Q8H PRN 15 tabs 0RF pain N43.3 - Hydrocele, unspecified tamsulosin 0.4 mg PO BEDTIME 14 caps 0RF 14 days N20.0 - Calculus of kidney Patient Instructions: The patient had an opportunity to ask questions regarding the treatment plan. All questions were answered. Physical exam, labs, and imaging were discussed and reviewed in detail. As well as risks, benefits, and discussion of treatment choices. No major barriers to understanding were identified. The patient expressed understanding and agreement with the above treatment plan. The patient was made aware they should contact our office by phone for worsening of their current condition, the appearance of new symptoms, or with any questions or concerns. Compliance is encouraged with any medications and follow up testing that is ordered. It is a privilege to be allowed the opportunity to participate in? your urological care.? Again, if you have any questions or concerns If you have any questions or concerns please do not hesitate to contact me. The office is [phone]. This note is constructed using voice recognition software. While every effort has been made to ensure accuracy logging rafter laborer errors may have been included. Yours sincerely, TRISTEN Moore Coding Level of Care Code Est Pt Level 4 (92802) Diagnoses Flank pain R10.9 Nephrolithiasis N20.0
== END 2023-06-19 10:03 | disposition home or self-care (01) ==
PROVIDERS: Visit Provider Nurse Practitioner Family
DX: R10.9 Unspecified abdominal pain (principal); N20.0 Calculus of kidney
CPT/HCPCS: 99214

== ENCOUNTER → 2023-06-19 09:32 | Outpatient (BNVA) | payer OTHER, SELFPAY | PROVIDERS: Visit Provider Nurse Practitioner Family | DX: N20.0 Calculus of kidney (principal); R10.9 Unspecified abdominal pain | CPT/HCPCS: 81003; 99212 ==

== ENCOUNTER 2023-06-26 10:48 | Day surgery (SDC) | payer OTHER, SELFPAY ==
--- NOTE | 2023-06-25 11:01 | HO.ANESPROP2 ---
Documented by User: Portia Hunt NP 06/25/23 11:01 HPI - Anesthesia Eval Consult details Narrative: 48yo M for Left Cystoscopy, Ureteroroscopy, Retro, Laser,with poss stent [facility] Active Problems Active Problems: All Active Problems (Updated 05/04/23 @ 11:16 by TRISTEN Moore) Gross hematuria (Acute) Flank pain (Acute) Nephrolithiasis (Acute) Past Medical History Medical History Renal colic Social History Patient Tobacco Use Status: Never used Tobacco Advance Directives: No Advance Directives Information Provided: Yes Meds Allergies Allergy/AdvReac Type Severity Reaction Status Date / Time No Known Allergies Allergy Verified 06/19/23 10:09 Assessment and Plan Assessment Anesthesia Assessment: Chart Reviewed Documented by User: Johnnie Stoddard MD 06/26/23 11:16 [facility] Past Medical History Medical History Renal colic Family History Family history of problems with anesthesia: No Surgical History History of Problems with Anesthesia: No Social History Patient Tobacco Use Status: Never used Tobacco Advance Directives: No Advance Directives Information Provided: Yes Meds Allergies Allergy/AdvReac Type Severity Reaction Status Date / Time No Known Allergies Allergy Verified 06/19/23 10:09 Exam Airway Mallampati Class: II TM Dist: >3cm Neck ROM: Full Assessment and Plan Assessment Anesthesia Assessment: Anesthesia Plan Discussed Final Anesthetic Review Family History of Problems with Anesthesia: No History of Problems with Anesthesia: No NPO: Yes ASA Class: II Final Preanesthetic Review: No Changes in Pt Med Stat, Meds/Allgs Chart Reviewed, Consent Obtained/Reviewed and Anes Risks/Benef Reviewed Patient Risk: Low Procedure Risk: Low Anesthetic Plan Anesthetic Plan: GA Disposition: Standard PACU
[2023-06-26] VITALS (7 sets, daily range): BP systolic 115–137; BP diastolic 81–90; PULSE 64–77; RESP 14–18; TEMP 36.2–36.6; O2SAT 96–98; BMI 30.7
--- NOTE | ~2023-06-26 | FL_ITS ---
EXAMINATION: XR FLUOROSCOPY WITH IMAGES CLINICAL INFORMATION: Left stone. COMPARISON: Previous CT of the abdomen and pelvis May 2023 TECHNIQUE: Fluoroscopy Supervised By: Dr. Torres. Fluoroscopy Time: 26.4 seconds. Cumulative Dose: 11.82 mGy. DAP: Not available on C-arm. Images: 4. FINDINGS: Initial images demonstrate opacification of the left distal ureter. There are 2 filling defects questionable for stones. Final images demonstrate left internal ureteral stent in satisfactory position. FL/FL guidance in OR IMPRESSION: Fluoroscopy guidance for left retrograde exam and stent placement
[2023-06-26] MEDS: Lactated Ringers 1,000 ML 100 ML IVCONT (11:25)
--- NOTE | 2023-06-26 12:25 | MHC.SHP ---
Pre-Procedural Eval Section A Date of Service: 06/26/23 The patient is an INPATIENT: No The History & Physical has been completed within 30 days and I have reviewed it.: Yes Section B Chief Complaint: Calculus of kidney,Gross hematuria Allergies: Allergies Allergy/AdvReac Type Severity Reaction Status Date / Time No Known Allergies Allergy Verified 06/26/23 11:27 Plan Diagnosis/Plan: Unchanged I have reviewed the history and physical and performed a pertinent physical examination on my patient. No changes have occurred unless specified. Plan for Cystoscopy, left ureteroscopy, possible laser lithotripsy, possible ureteral stent. Risks discussed included but not limited to, possible need to repeat procedure if stone is not completely fragmented, Irritative voiding symptoms, bladder spasms, urgency, blood in urine. Time Spent With Patient Time: Total time managing care of this patient today ____ minutes.
--- NOTE | 2023-06-26 14:41 | P.OP_ITS ---
Operative Note Operative Note Date of Service: 06/26/23 Narrative: PreOperative Diagnosis:?? Left ureteral stones Post Operative Diagnosis:?? Left ureteral stones Procedure: - cystoscopy, left retrograde, ureteroscopy laser lithotripsy stent insertion, 6 Cameroonian by salvador-lenth cm Surgeon:?Dr Rimma Torres Anesthesia:? General Indications for procedure: Left flank pain secondary to left ureteral stones. CT KUB noted two distal ureteral stones. Procedure: After informed consent was verified the patient was brought to the operating placed on the OR table in supine position.? General Anesthesia was administered per protocol.? The patient was placed in lithotomy position, prepped and draped in the usual sterile fashion.? Safety pause time-out and side of surgery confirmed.? Antibiotics confirmed. 2% lidocaine jelly 10 mL was passed transurethrally. A 22 Cameroonian cystoscope was inserted transurethrally, the bulbous urethra was within normal limits. The prostatic urethra was nonobstructive. The bladder was visualized.? Both ureteric orifices were in normal position. An open-ended ureteral catheter was passed into the left ureteral orifice and a retrograde examination was performed. There was a filling defect in the distal ureter and dilatation of the proximal ureter. A g uidewire was passed through the ureteral catheter into the kidney. The balloon dilator size 12fr x 4 cm was passed over the guide -wire the balloon was inflated to 10 mmHg and the intramural ureter was dilated for 45 seconds. The balloon was deflated and removed. After removing the balloon dilator the cystoscope was removed, the guidewire was used as the safety and was attached to the draping. The semi rigid ureteroscope was passed along side the guidewires to the level of the stones in the ureter. Laser lithotripsy of the stone was done using the 365 fiber with a settings 0.8 joules by 8 hertz. There was good fragmentation of the stone. The 0 degree basket was passed through the ureteroscope, to remove stone fragents to send for analysis. The ureteroscope was removed. The cystoscope was passed over the safety guidewire. A? 6 Cameroonian by multi-length cm stent was placed into the ureter and renal pelvis under a combination of fluoroscopy and direct visualization. The bladder was emptied.? The rigid cystoscope was removed. ? The patient tolerated the procedure well and was brought to the recovery room in stable condition. Complications: None Drains: Ureteral stent as dictated above
[2023-06-26] MEDS: Phenazopyridine HCL 200 MG TABLET PO (14:57)
[2023-07-03 20:13] LABS: Stone Source KIDNEY STONE
== END 2023-06-26 15:20 | disposition home or self-care (01) ==
PROVIDERS: Visit Provider Urology
PROC: (CPT 52356; principal; 2023-06-26 13:50)
DX: N20.1 Calculus of ureter (principal); R10.9 Unspecified abdominal pain; N28.1 Cyst of kidney, acquired; N40.0 Benign prostatic hyperplasia without lower urinary tract symptoms
CPT/HCPCS: 52356; 82365; 88300; C1726; C1758; C1769; C2617; J0690; J1100; J1885; J2405; J2704; J3010; Q9967

== ENCOUNTER → 2023-06-26 10:48 | Outpatient (BNV) | payer OTHER, SELFPAY | PROVIDERS: Visit Provider Urology | DX: N20.1 Calculus of ureter (principal) | CPT/HCPCS: 52356; 74420 ==

== ENCOUNTER 2023-07-04 15:20 | Outpatient (AMB) | payer OTHER, SELFPAY ==
--- NOTE | 2023-07-04 15:59 | A.OFFVIS_ITS ---
Intake Intake Visit Reasons: S/P Cysto special/stent removal Intake Note: Patient presents today for a CYSTOSCOPY/STENT REMOVAL Procedure: Meds: Tamsulosin Allergies to Antibiotic: No Known Allergies Blood Thinner: None Urinalysis test cleared for Cysto Disposable Uro-G Cystoscope Cannula: Lot: [id number] Exp: 12/06/2024 Computer Systems Information Director Required: Yes Computer Systems Information Director Language: Argentine Information Interpreted: non-clinical & clinical Clinical Laboratory Manager: Clinical Laboratory Manager Present Accompanied by: Self / Same As Patient Allergies No Known Allergies Allergy (Verified 07/04/23 16:01) HPI HPI Comments History of Present Illness Details Guillermo is a 48-year-old male who presents today to the office for a follow-up. 07/04/2023? He is followed today for stent removal. He was last seen by me on 06/26/2023, s/p left ureteroscopy laser lithotripsy stone, stent insertion. Here for stent removal. I reviewed the stone analysis results from 06/26/2023 revealed calcium oxalate. Reviewed diet modification with the patient. I have discussed at length diet modification to decrease risk of forming more kidney stones. I have discussed low oxalate diet and specific foods to avoid including certain green leafy vegetables, chocalate, nuts, tea, beets, rubarb; low sodium, decreased use of animal protein and the importance of hydration drinking up to 2-2.5 liters of fluids and use of adding lemon to water to increase citrate in the diet. A pamphlet is also provided today. Stent removed without difficulty. 07/04/2023: 24-hour urine collection was ordered. [facility] Medical History Renal colic Surgical History (Updated 07/04/23 @ 16:02 by NIDA Samson) Hx of cystoscopy Social History Patient Tobacco Use Status: Never used Tobacco Office Procedures Cystoscopy Consent Discussed risk and benefit or proposed procedure with the patient. Information consent for procedure given to the patient. Discussed technical aspects, risks, benefits and alternatives in full. Addressed all of the patient's questions and concerns regarding the procedure. The patient demonstrated knowledge and understanding. They wish to proceed with this procedure. Preparation The patient was prepped in the usual manner. A fur storage clerk was present and in the room. Genitalia was prepped with betadine solution in a sterile manner. Lidocaine Jelly 2% was placed into the urethra and 16Fr flexible Olympus cystoscope was inserted into the meatus after adequate lubrication. Procedure Time out per protocol performed. Bladder Inspection Cystoscopy findings: mild edema ureteral orifice which is expected, distal end of ureteral stent visualized. The grasping forceps were used and the stent was removed without difficulty. [id number] DISPOSABLE SCOPE URO-G FLEXIBLE SCOPE Procedure code (CPT) selection complete Office Meds lidocaine HCl 2 % mucosal jelly in applicator Performing Provider: Rimma Torres MD Performing Location: [facility] Administered by: Laura Hull RN on 07/04/23 15:59 Dose Route Admin Location Dispensed Lot Number Expiration Date ND Hog Ribber 10 mL intra-urethral 20 mL naproxen 500 mg tablet Performing Provider: Rimma Torres MD Performing Location[place] [facility] Administered by: Laura Hull RN on 07/04/23 15:59 Dose Route Admin Location Dispensed Lot Number Expiration Date NDC Hog Ribber 500 mg PO 1 tab ciprofloxacin HCl 500 mg tablet Performing Provider: Rimma Torrse MD Performing Location: [facility] Administered by: Laura Hull RN on 07/04/23 15:59 Dose Route Admin Location Dispensed Lot Number Expiration Date ND Hog Ribber 500 mg PO 1 tab Results AMB Urinalysis, Automated UA Leukoctes 70 Aleksey/uL Last Edit by NIDA Samson on 07/04/23 16:12 1+ Rani Small 07/04/23 16:12 UA Nitrite Negative Last Edit by NIDA Samson on 07/04/23 16:12 UA Urobilinogen 0.2 mg/dL Last Edit by NIDA Samson on 07/04/23 16:1 2 UA Protein 300 mg/dL Last Edit by NIDA Samson on 07/04/23 16:12 3+ Rani Small 07/04/23 16:12 UA pH 6.0 Last Edit by NIDA Samson on 07/04/23 16:12 UA Blood 200 Alli/uL Last Edit by NIDA Samson on 07/04/23 16:12 3+ Rani Small 07/04/23 16:12 UA Specific [place] 1.030 Last Edit by NIDA Samson on 07/04/23 16: 12 UA Ketone Negative Last Edit by NIDA Samson on 07/04/23 16:12 UA Bilirubin 0 mg/dL Last Edit by NIDA Samson on 07/04/23 16:12 UA Glucose 0 mg/dL Last Edit by NIDA Samson on 07/04/23 16:12 Results Reviewed Results Reviewed: Laboratory Last Values Urine pH (Auto) 6.0 07/04/23 16:10 Specific [place] (Auto) 1.030 07/04/23 16:10 Urine Protein (Auto) 300 mg/dL 07/04/23 16:10 Glucose (UA)(Auto) 0 mg/dL 07/04/23 16:10 Urine Ketones (Auto) Negative 07/04/23 16:10 Urine Blood (Auto) 200 Alli/uL 07/04/23 16:10 Urine Nitrite (Auto) Negative 07/04/23 16:10 Urine Bilirubin (Auto) 0 mg/dL 07/04/23 16:10 Urine Urobilinogen (Auto) 0.2 mg/dL 07/04/23 16:10 Leukocyte Esterase (Auto) 70 Aleksey/uL 07/04/23 16:10 Assessment & Plan Assessment & Plan (1) Nephrolithiasis: Code(s): N20.0 - Calculus of kidney Plan 24-hour collection test was ordered. Orders: Orders AMB Cystoscopy 07/04/23 N20.0 - Calculus of kidney, R31.0 - Gross hematuria AMB Urinalysis Automated 07/04/23 Z13.9 - Encounter for screening, unspecified Patient Instructions: The patient had an opportunity to ask questions regarding treatment plan. All questions were answered. Imaging, Laboratory studies and physical exam results were discussed and reviewed in detail. No major barriers to understanding were identified. The patient expressed understanding and agreement with the above treatment plan. The patient is aware they should contact our office by phone for worsening of their current condition or the appearance of new symptoms. Compliance is encouraged with any medications and followup testing that is ordered. It is a privilege to be allowed the opportunity to participate in the urologic care of your patient. If you have any questions or concerns regarding treatment for the above conditions please do not hesitate to contact me. The office telephone contact is [phone]. This note is constructed in part using voice recognition software. While every effort has been made to ensure accuracy denture technician errors may have been included. Yours sincerely, Rimma Torres MD Coding Level of Care Code Procedure Only Diagnoses Nephrolithiasis N20.0 CPT Codes Cystoscopy - CPT: 95858-[id number] ([id number])
== END 2023-07-04 17:03 | disposition home or self-care (01) ==
PROVIDERS: Visit Provider Urology
DX: N20.0 Calculus of kidney (principal); R31.0 Gross hematuria; Z13.9 Encounter for screening, unspecified; Z96.0 Presence of urogenital implants
CPT/HCPCS: 52310

== ENCOUNTER → 2023-07-04 15:20 | Outpatient (BNVA) | payer OTHER, SELFPAY | PROVIDERS: Visit Provider Urology | DX: N20.0 Calculus of kidney (principal) | CPT/HCPCS: 52310; 81003 ==

== ENCOUNTER 2024-02-01 16:07 | Outpatient (AMB) | payer OTHER, SELFPAY ==
[2024-02-01 16:08] VITALS: BP 132/90; PULSE 74; O2SAT 95; BMI 31.7
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
== END 2024-02-01 17:01 | disposition home or self-care (01) ==
PROVIDERS: PCP Internal Medicine; Visit Provider Internal Medicine
DX: Z00.00 Encounter for general adult medical examination without abnormal findings (principal); N20.0 Calculus of kidney; R03.0 Elevated blood-pressure reading, without diagnosis of hypertension; M25.551 Pain in right hip; M54.50 Low back pain, unspecified; M25.511 Pain in right shoulder
CPT/HCPCS: 99386

== ENCOUNTER 2024-02-08 07:23 | Outpatient (REF) | payer OTHER, SELFPAY ==
--- NOTE | ~2024-02-08 | XR_ITS ---
EXAMINATION: XR LUMBOSACRAL SPINE CLINICAL INFORMATION: Low back pain COMPARISON: None available. TECHNIQUE: Three views of the lumbosacral spine. FINDINGS: Normal alignment and lumbar lordosis with mild to moderate multilevel degenerative disc disease. Disc space narrowing is most prominent at L1-L2. Anterior endplate osteophytes. No fracture. XR/XR lumbar spine 2-3V IMPRESSION: Mild to moderate multilevel degenerative disc disease. Normal alignment. No fracture.
--- NOTE | ~2024-02-08 | XR_ITS ---
EXAMINATION: XR SHOULDER, RIGHT CLINICAL INFORMATION: Right shoulder pain COMPARISON: None available. TECHNIQUE: AP external rotation, Grashey, scapular Y, and axillary views of the right shoulder. FINDINGS: Mild acromioclavicular and glenohumeral osteoarthritis with small marginal osteophytes. No fracture or malalignment. Lateral subacromial spur. XR/XR shoulder RT min 2V IMPRESSION: Mild acromioclavicular and glenohumeral osteoarthritis. Lateral subacromial spur.
--- NOTE | ~2024-02-08 | XR_ITS ---
EXAMINATION: XR HIP, RIGHT CLINICAL INFORMATION: Right hip pain COMPARISON: None available. TECHNIQUE: Two views of the right hip. FINDINGS: No fracture. Alignment is anatomic. Hip joint space is maintained. Soft tissues are unremarkable. XR/XR hip RT min 2V IMPRESSION: Normal right hip.
[2024-02-08 07:35] LABS: MANUAL DIFF FLAG NO
[2024-02-08 07:49] LABS: Basophils Percent Auto 0.5 % (0-2); Eosinophils Absolute Auto 0.2 X10*3/uL (0.0-0.4); Eosinophils Percent Auto 3.6 % (0-4); Hematocrit 44.5 % (42.0-52.0); Imm Gran Abs Auto 0.01 X10*3/uL (0.00-0.03); Imm Gran Pct Auto 0.2 % (0.0-0.4); Lymphocytes Absolute Auto 1.8 X10*3/uL (1.2-4.9); Lymphocytes Percent Auto 42.6 % (20-40); Mean Corpuscular HGB Conc 33.7 g/dl (31.0-36.0); Mean Corpuscular Hemoglobin 30.6 pg (27.0-33.0); Mean Corpuscular Volume 90.8 fL (80.0-98.0); Mean Platelet Volume 12.2 fL (9.4-12.4); Monocytes Absolute Auto 0.5 X10*3/uL (0.1-1.2); Monocytes Percent Auto 12.9 % (2-11); Neutrophils Absolute Auto 1.7 x10*3/uL (2.0-8.3); Neutrophils Percent Auto 40.2 % (45-73); Platelet Count 172 X10*3/uL (160-400); Red Cell Distribution Width 12.7 % (11.0-16.0); White Blood Count 4.2 X10*3/uL (4.8-10.8)
[2024-02-08 08:27] LABS: Appearance Urine Clear; Color Urine Yellow; Glucose Urine UA Negative (Negative); Leukocyte Esterase Urine Negative (Negative); Nitrite Urine Negative (Negative); PH 5.5 (5.0-9.0); Specific Gravity - Urine 1.025 (1.005-1.025); UMIC TRIGGER UACC YES; Urine Blood Negative (Negative); Urine Ketones Negative (Negative); Urine Protein 30 (1+) mg/dL (Neg-Trace)
[2024-02-08 08:30] LABS: Alanine Aminotransferase 85 U/L (0-40); Albumin Level 4.1 g/dL (3.5-5.0); Alkaline Phosphatase 88 U/L (39-117); Anion Gap 9 (12-20); Aspartate Amino Transferase 45 U/L (5-37); Bilirubin Total 0.8 mg/dL (0.0-1.0); Blood Urea Nitrogen 17 mg/dL (9-16); Calcium 8.9 mg/dL (8.4-10.2); Carbon Dioxide 24 mmol/L (22-29); Chloride 110 mmol/L (96-108); Cholesterol 173 mg/dL (<200); Estimated Glomerular Filt Rate > 60; Glucose Fasting 106 mg/dL (60-99); HDL Cholesterol 31 mg/dL (>40); LDL Cholesterol Calculated 113 mg/dL (<100); Potassium 4.2 mmol/L (3.3-5.1); Sodium 139 mmol/L (135-145); Triglycerides 148 mg/dL (<150)
[2024-02-08 08:32] LABS: Bacteria Urine None Seen (None Seen); Hyaline Casts Urine 0-2 /LPF (0-2); RBC Urine 0-2 /HPF (0-2); Squamous Epithelial Cell Urine 0-2 /HPF (0-2); WBC Urine 0-5 /HPF (0-5)
[2024-02-08 08:44] LABS: Prostate Specific Antigen Scr 0.71 ng/mL (<0.05-4.0)
[2024-02-08 08:47] LABS: TSH reflex Free T4 3.83 uIU/mL (0.32-4.0); Vitamin D 25-OH Total 11.1 ng/mL (>30)
== END 2024-02-08 07:24 | disposition home or self-care (01) ==
LOC: HO.XRAY 07:23
PROVIDERS: PCP Internal Medicine; Visit Provider Internal Medicine
DX: M54.50 Low back pain, unspecified (principal); M25.511 Pain in right shoulder; M25.551 Pain in right hip; E78.00 Pure hypercholesterolemia, unspecified; E55.9 Vitamin D deficiency, unspecified; D64.9 Anemia, unspecified; Z00.00 Encounter for general adult medical examination without abnormal findings
CPT/HCPCS: 36415; 72100; 73030; 73502; 80053; 80061; 81001; 81003; 82306; 84153; 84443; 85025

== ENCOUNTER 2024-04-22 17:26 | Emergency (ER) | payer OTHER, SELFPAY ==
--- NOTE | ~2024-04-22 | XR_ITS ---
EXAMINATION: XR HAND, LEFT CLINICAL INFORMATION: Trauma COMPARISON: None available. TECHNIQUE: PA, lateral, and oblique views of the left hand. FINDINGS: The bones and soft tissues are normal. No fracture. Alignment is anatomic. Joint spaces are maintained. No erosions or soft tissue calcifications. XR/XR hand LT min 3V IMPRESSION: Normal left hand. Electronically signed by: Nikki Gillis MD 04/22/2024 08:18 PM EDT
[2024-04-22 18:14] VITALS: BP 145/89; PULSE 59; RESP 16; O2SAT 98; BMI 30.9
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
[2024-04-22] MEDS: Diphth,Pertus(ACell),Tet Adult 0.5 ML SYRINGE IM (20:28)
[2024-04-22] MEDS: Lidocaine HCl 1 % 20 ML VIAL 5 ML INFILTRATI (20:30)
--- NOTE | 2024-04-22 20:47 | ED_ITS ---
HPI - General Adult General Chief complaint: Wound/Laceration Stated complaint: left thumb laceration Time Seen by Provider: 04/22/24 20:21 Source: patient Mode of arrival: ambulatory Limitations: no limitations History of Present Illness HPI narrative: This is a 49-year-old man with a past medical history of nephrolithiasis who presents for evaluation of left thumb laceration. 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 Patient states that he was working on a motor and attempted to prevent his thumb from getting crushed, which she reports doing so. He states that in doing so he accidentally cut the tip of his left thumb. He states that this happened today prior to arrival. He states he is not sure of his last tetanus immunization states that this was several years ago. He states no other injuries or concerns. He states no paresthesias. He states no pain in his left hand, wrist or forearm. Related Data Previous Rx's ?Medication ?Instructions ?Recorded cholecalciferol (vitamin D3) 25 25 mcg PO DAILY #30 caps 03/26/24 mcg (1,000 unit) capsule bacitracin 500 unit/gram topical 1 appl topical TID #14 grams 04/22/24 ointment Allergies Allergy/AdvReac Type Severity Reaction Status Date / Time No Known Allergies Allergy Verified 04/22/24 18:18 Review of Systems Review of Systems: ROS as per HPI [facility] Past Medical History Medical History (Updated 04/22/24 @ 20:51 by Aba Otero MD) Obesity (BMI 30-39.9) Nephrolithiasis Renal colic Surgical History (Updated 02/01/24 @ 16:51 by Tunde Seymour MD) History of dermoid cyst excision History of left inguinal hernia repair Hx of cystoscopy Family History Family History (Updated 02/01/24 @ 19:38 by Tunde Seymour MD) Other Family history non-contributory Social History Social History (Updated 02/01/24 @ 19:39 by Tunde Seymour MD) Housing: Condominium Patient Tobacco Use Status: Never used Tobacco Advance Directives: No Advance Directives Information Provided: Yes service: No Current occupational status: employed Cognitive needs: No Hearing needs: No Vision needs: No Physical Exam ED Vital Signs: Vital Signs - 24 hr 04/22/24 18:14 Pulse Rate 59 Respiratory Rate 16 Blood Pressure 145/89 H Pulse Oximetry 98 Oxygen Delivery Method Room Air BMI result Body Mass Index 30.9 Gen: NAD, AOx3 HEENT: NCAT, EOMI, normal conjunctiva CV: RRR, 2+ bilateral radial pulses Pulm: CTAB, no increased work of breathing GI: Soft, NTND, no rebound, guarding or rigidity MSK: Bilateral upper extremity compartments are soft, no anatomical snuffbox tenderness to palpation, no upper extremity deformity, approximate 1.5 cm laceration to palmar aspect of distal left thumb, intact motor function to bilateral radial/ulnar/median/anterior interosseous nerves Neuro: Grossly non focal, sensation intact to light touch in bilateral upper extremity dermatomes C6-C8 Medications Administered Discontinued Medications Generic Name Dose Route Start Last Admin Trade Name Freq PRN Reason Stop Dose Admin Diphtheria/Tetanus/Acell Pertussis 0.5 ml 04/22/24 18:15 04/22/24 20:28 Diphth,Pertus(Acell),Tet Adult 0.5 Ml Syringe IM 04/22/24 18:16 0.5 ml .ONCE ONE Administration Lidocaine HCl 5 ml 04/22/24 20:26 04/22/24 20:30 Lidocaine Hcl 1 % 20 Ml Vial INFILTRATI 04/22/24 20:27 5 ml ONCE ONE Administration Procedures Laceration Laceration 1: Site: hand Side (If applicable): left Size (cm): 1.5 Description: linear and clean Depth: simple, single layer Local Anesthetic: lidocaine 1% Amount of anesthesia used (mL): 3 Pre-repair: wound explored and irrigated extensively Skin layer closed with: nylon Size (cm): 4-0 Number of sutures: 6 Technique: simple, interrupted Medical Decision Making Medical Decision Making MDM Narrative: Differential diagnosis includes, but is not limited to laceration, abrasion or fracture. Patient is afebrile and hemodynamically stable on room air. Exam is benign and reassuring. The affected upper extremity is neurovascularly intact. Laceration is repaired without complication. This is cleansed with sterile water and iodine solution. The wound is cleansed extensively under pressure irrigation with sterile water. Bacitracin was applied after suture. Tetanus is updated here in the ED. I independently reviewed and interpreted the patient's x-ray as below. I reviewed radiology impression of x-ray as below. On re-examination, patient is well-appearing and in no acute distress. ?There is no indication for further emergent evaluation in this otherwise well-appearing patient as above. I have provided the patient extensive counseling regarding appropriate wound care and expectant management. ?Patient is provided written and verbal instructions, educational materials, recommendations for outpatient follow-up, prescription for bacitracin, strict return precautions and teach back is performed. ?Patient states understanding and agreement with plan of care. ?Patient is discharged home in stable and improved condition. Admission/Observation Consideration of admission/observation: Escalation of care including admission/observation considered Independent Interpretation I performed an independent interpretation of an: Plain X-Ray Interpretation: I independently reviewed and interpreted patient's x-ray of the hand, which demonstrates no acute fracture dislocation. Radiology Impression Discussion of test interpretation with radiology: I have reviewed the radiologist's reading. Radiologist Impression: XR/XR hand LT min 3V IMPRESSION: Normal left hand. Electronically signed by: Nikki Gillis MD 04/22/2024 08:18 PM EDT RP Dictated By: Nikki Gillis MD Signed By: <Electronically signed by Nikki Gillis MD in OV> 04/22/24 Discharge Plan Discharge Clinical Impression: Laceration of thumb Patient Disposition: Home, Self-Care Instructions: Laceration (ED) Additional Instructions: Usted fue evaluado en emergencia por maico lesi?n en el pulgar. Roberto radiograf?a no mostr? huesos rotos ni dislocados. Tu laceraci?n fue reparada con puntos. Mantenga los puntos secos miley 24 horas. Despu?s de 24 horas, comience a lavarse dos o jones veces al d?a con agua y jab?n. Despu?s de cada lavado, aplique maico pomada antibi?thai triple dos o jones veces al d?a hasta que se retiren los puntos. Se mcclellan enviado maico receta para sheryl tamara?ento a roberto farmacia. Regrese a la gerson de emergencias, a un centro de atenci?n de urgencia o a roberto m?dico de atenci?n primaria para que le retiren los puntos en 7 d?as. Regrese a la gerson de emergencias si presenta alguna lesi?n nueva o s?ntomas preocupantes que incluyen, entre otros, signos de infecci?n, kacie enrojecimiento creciente, hinchaz?n o drenaje de pus de la herida. Prescriptions: New bacitracin 500 unit/gram ointment 1 appl topical TID Qty: 14 0RF No Action cholecalciferol (vitamin D3) 25 mcg (1,000 unit) capsule 25 mcg PO DAILY Qty: 30 2RF Print Language: Yi
[2024-04-22] MEDS: Bacitracin Oint 0.9 GM PACKET 1 APPL TOPICAL (20:50)
[2024-04-22 21:32] VITALS: BP 132/78; PULSE 51; RESP 16; TEMP 36.2; O2SAT 97
== END 2024-04-22 21:32 | disposition home or self-care (01) ==
PROVIDERS: Emergency Provider Emergency Medicine; PCP Internal Medicine
DX: S61.012A Laceration without foreign body of left thumb without damage to nail, initial encounter (principal); M79.642 Pain in left hand; Y29.XXXA Contact with blunt object, undetermined intent, initial encounter; Y93.89 Activity, other specified; Y92.89 Other specified places as the place of occurrence of the external cause; Y99.8 Other external cause status; Z23 Encounter for immunization
CPT/HCPCS: 12041; 73130; 90471; 90715; 99282; 99284

== ENCOUNTER 2024-05-27 16:51 | Outpatient (AMB) | payer OTHER, SELFPAY ==
--- NOTE | 2024-05-27 16:54 | MHC.PC.OV ---
Vital Signs 05/27/24 16:56 Height 6 ft 2 in Weight 241 lb 6 oz BMI 31.0 BP 130/66 Blood Pressure Location Lt brachial Position Sitting Pulse 86 Pulse Source Pulse Oximeter Pulse Oximetry (%) 98 Oxygen Delivery Method Room Air Intake Visit Reasons: 3 month f/u Intake Note: Patient is here to follow up on Obesity, Nepholithiasis. Pt decline flu shot today. Open Developer Operator Required: Yes Open Developer Operator Language: Compensation Director Name: Kerry (spouse) Information Interpreted: non-clinical & clinical [employer]: Present Accompanied by: Spouse Allergies No Known Allergies Allergy (Verified 05/27/24 17:18) Medication List - Last Reconciled 05/27/24 by Tunde Seymour MD cholecalciferol (vitamin D3) 25 mcg PO DAILY Tobacco use date assessed: 05/27/24 Dental Screening Dental Screen Date: 02/01/24 HPI 3 month f/u HPI Details Patient comes in today for his follow-up visit States that he continues to experience recurrent pain over his right lower back as well as over his right lower abdominal area and around his right hip Notes that the pain around his right hip feels worse when he is up and about and moving around He does not recall any recent injury or trauma to his right hip area He has also been experiencing increased pain in both of his feet lately, especially over the balls of his feet He denies any headaches or dizziness Denies any chest pains, no shortness of breath No nausea/vomiting, no abdominal pain No change in bowel habits noted Would like to go over the results again off his labs done back in January 2024 after his visit then [facility] Medical History (Updated 05/28/24 @ 05:10 by Tunde Seymour MD) Vitamin D deficiency Primary osteoarthritis of right shoulder Elevated LFTs Obesity (BMI 30-39.9) Nephrolithiasis Renal colic Surgical History History of dermoid cyst excision History of left inguinal hernia repair Hx of cystoscopy Family History Other Family history non-contributory Social History Housing: Condominium Alcohol intake: never Patient Tobacco Use Status: Never used Tobacco e-Cigarette/Vaping Use: Never Used Second Hand Smoke Exposure: No service: No Current occupational status: employed Cognitive needs: No Hearing needs: No Vision needs: No Questionnaire Thrive Questionnaire Date Thrive assessed: 02/01/24 MARSHA-7 AMB Questionnaire MARSHA-7 Date MARSHA - 7 assessed: 02/01/24 Source: Developed by Drs. Pola Bliss, Chantelle Swartz, Cesar Boyd and colleagues, with an educational jonny from [employer]. Review of Systems Const Denies chills, Denies fatigue, Denies fever(s) and Denies headache(s) ENT Denies dysphagia, Denies dizziness, Denies otalgia, Denies headache(s), Denies neck pain, Denies odynophagia and Denies sore throat Card Denies chest pain, Denies irregular heart rhythm, Denies palpitations and Denies dyspnea Resp Denies chest congestion, Denies cough and Denies dyspnea GI Reports abdominal pain (over the right inguinal area), Denies constipation, Denies dysphagia, Denies heartburn, Denies diarrhea, Denies nausea, Denies odynophagia and Denies vomiting Denies hematuria, Denies difficulty urinating, Denies dysuria and Denies urinary frequency Musc Reports back pain (over the right lower back ), Reports arthralgias (around the right hip area), Denies neck pain and Reports numbness (right leg goes numb at times ) Skin/Breast Denies rash Neuro Denies dizziness, Denies headache(s), Reports numbness (right leg goes numb at times ) and Denies paresthesias Endo Denies fatigue and Denies palpitations Physical exam (Primary Care) Vital Signs: Last Vital Signs Pulse 86 05/27/24 16:56 BP 130/66 05/27/24 16:56 Pulse Ox 98 05/27/24 16:56 Oxygen Delivery Method Room Air 05/27/24 16:56 BMI result Body Mass Index 31.0 Tobacco/Smoking Status: Tobacco use Status Tobacco use date assessed 05/27/24 05/27/24 17:03 Patient Tobacco Use Status Never used Tobacco 05/27/24 17:03 e-Cigarette/Vaping Use Never Used 05/27/24 17:03 Thrive Assessment: Date of Thrive Assessment Date Thrive assessed 02/01/24 05/27/24 17:03 Const General: no acute distress and alert HENMT Ears: TM's normal bilaterally and EAC's normal Throat: Yes posterior oropharynx normal and Yes tonsils normal (no TP congestion) Neck Neck: Yes no lymphadenopathy and Yes supple Thyroid: Thyroid normal Resp Auscultation: clear to auscultation bilaterally, no rales and no wheezes Cardio Rate: regular rate Rhythm: regular rhythm Heart sounds: no murmurs GI Palpation (GI): Soft to palpation and nontender Auscultation: normal bowel sounds General: Yes no CVA tenderness Back/Spine/Pelvis Back: no CVA tenderness Thoracic/Lumbar Spine: straight leg raise negative bilaterally, No thoracic spinal tenderness and No lumbar spinal tenderness (tenderness is mostly to the right side of the lumbar spine at L1-L2) Skin Rashes: no rashes Extrem Other: no tenderness elicited on exam of both feet General: Yes no clubbing, cyanosis or edema Right lower extremity: hip/thigh Details: tenderness Location: of the hip Location: anterolaterally Results Reviewed Results Reviewed: Laboratory Tests 02/08/24 02/08/24 07:28 07:33 WBC 4.2 L Hgb 15.0 Hct 44.5 Plt Count 172 Sodium 139 Potassium 4.2 Creatinine 0.88 Estimated GFR > 60 Fasting Glucose 106 H Calcium 8.9 D AST 45 H ALT 85 H Triglycerides 148 Cholesterol 173 LDL Cholesterol, Calc 113 H HDL Cholesterol 31 L PSA Screen 0.71 25-OH Vitamin D Total 11.1 L TSH 3.83 Ur Specific [place] 1.025 Urine Protein 30 (1+) H Urine Glucose (UA) Negative Urine Blood Negative Urine Nitrite Negative Ur Leukocyte Esterase Negative Coding Level of Care Code Est Pt Level 4 (44756) Diagnoses Elevated blood pressure reading in office without diagnosis of hypertension R03.0 Elevated LFTs R79.89 Impaired fasting glucose R73.01 Vitamin D deficiency E55.9 Nephrolithiasis N20.0 Degeneration of intervertebral disc of lumbar region with discogenic back pain M51.360 Disc-related pain type: discogenic back pain only Primary osteoarthritis of right shoulder M19.011 Bilateral foot pain M79.671; M79.672 Obesity (BMI 30-39.9) E66.9 Assessment & Plan Assessment & Plan (1) Elevated blood pressure reading in office without diagnosis of hypertension: Code(s): R03.0 - Elevated blood-pressure reading, without diagnosis of hypertension Category: Medical Plan: Reinforced low sodium diet - advised that systolic BP should be 120 mm or less to be considered normal He is advised that losing weight may also help with his blood pressure (2) Elevated LFTs: Code(s): R79.89 - Other specified abnormal findings of blood chemistry Category: Medical Plan: He is advised that this is most likely related to his weight and that losing weight should help get his LFTs back to normal Will continue to monitor his LFTs regularly (3) Impaired fasting glucose: Code(s): R73.01 - Impaired fasting glucose Category: Medical Plan: His FBS was only slightly higher than normal on his labs done back in January 2024 Reinforce low calorie/low carb diet; regular exercise should also help with this Will recheck his FBS in a few months for follow-up; will also check his HgbA1c then for further evaluation (4) Vitamin D deficiency: Code(s): E55.9 - Vitamin D deficiency, unspecified Category: Medical Plan: His Vitamin D level was very low on his labs done back in January 2024 and he has been started on Vitamin D supplements since then Continue Vitamin D3 2000 units QD Will recheck his Vitamin D level in a few months for follow up (5) Nephrolithiasis: Comment: S/P stenting (left) Code(s): N20.0 - Calculus of kidney Category: Medical Plan: Follow up with urology as scheduled for continuing management (6) Lumbar degenerative disc disease: Code(s): M51.369 - Other intervertebral disc degeneration, lumbar region without mention of lumbar back pain or lower extremity pain Category: Medical Qualifiers: Disc-related pain type: discogenic back pain only Qualified Code(s): M51.360 - Other intervertebral disc degeneration, lumbar region with discogenic back pain only Plan: Reinforced activity and weight-lifting restrictions X-rays of the lumbar spine done back in January 2024 revealed (+) mild to moderate multilevel degenerative disc disease, with normal alignment and no fracture Will refer him to physical therapy for further evaluation and management (7) Primary osteoarthritis of right shoulder: Code(s): M19.011 - Primary osteoarthritis, right shoulder Category: Medical Plan: X-rays of the right shoulder done back in January 2024 revealed (+) mild acromioclavicular and glenohumeral osteoarthritis with a lateral subacromial spur Will refer him to orthopedics for further evaluation and management of his shoulder pain (8) Bilateral foot pain: Code(s): M79.671 - Pain in right foot; M79.672 - Pain in left foot Category: Medical Plan: Will send him for x-rays of both feet for further evaluation Will refer him to podiatry for further evaluation and management (9) Obesity (BMI 30-39.9): Code(s): E66.9 - Obesity, unspecified Category: Medical Plan: Reinforce diet/exercise as tolerated/lose weight Plan Follow up n 4 months Orders: Orders PT Evaluation and Treatment 05/27/24 M51.369 - Other intervertebral disc degeneration, lumbar region without mention of lumbar back pain or lower extremity pain, M54.50 - Low back pain, unspecified XR foot LT min 3V 05/27/24 M79.672 - Pain in left foot XR foot RT min 3V 05/27/24 M79.671 - Pain in right foot Lipid Panel 4 Months E78.00 - Pure hypercholesterolemia, unspecified Complete Blood Count Auto Diff 4 Months D64.9 - Anemia, unspecified Hemoglobin A1c 4 Months R73.01 - Impaired fasting glucose Comprehensive [place]. Panel Fast 4 Months E78.00 - Pure hypercholesterolemia, unspecified Vitamin D 25-OH Total 4 Months E55.9 - Vitamin D deficiency, unspecified Referrals Orthopedics Referral M16.11 - Unilateral primary osteoarthritis, right hip Podiatry Referral M79.671 - Pain in right foot, M79.672 - Pain in left foot
[2024-05-27 16:56] VITALS: BP 130/66; PULSE 86; O2SAT 98; BMI 31.0
== END 2024-05-27 17:33 | disposition home or self-care (01) ==
LOC: HO.HMCH 16:52
PROVIDERS: PCP Internal Medicine; Visit Provider Internal Medicine
DX: R03.0 Elevated blood-pressure reading, without diagnosis of hypertension (principal); R73.01 Impaired fasting glucose; E66.9 Obesity, unspecified; Z68.31 Body mass index [BMI] 31.0-31.9, adult; E55.9 Vitamin D deficiency, unspecified; N20.0 Calculus of kidney; M51.360 Other intervertebral disc degeneration, lumbar region with discogenic back pain only; M19.011 Primary osteoarthritis, right shoulder; M79.671 Pain in right foot; M79.672 Pain in left foot

== ENCOUNTER → 2024-05-27 16:51 | Outpatient (BNVA) | payer OTHER, SELFPAY | PROVIDERS: PCP Internal Medicine; Visit Provider Internal Medicine | DX: R03.0 Elevated blood-pressure reading, without diagnosis of hypertension (principal); R79.89 Other specified abnormal findings of blood chemistry; R73.01 Impaired fasting glucose; E55.9 Vitamin D deficiency, unspecified; N20.0 Calculus of kidney; M51.360 Other intervertebral disc degeneration, lumbar region with discogenic back pain only; M19.011 Primary osteoarthritis, right shoulder; M79.671 Pain in right foot; M79.672 Pain in left foot; E66.9 Obesity, unspecified; Z68.31 Body mass index [BMI] 31.0-31.9, adult; Z71.3 Dietary counseling and surveillance | CPT/HCPCS: 99212 ==

== ENCOUNTER 2024-06-03 08:08 | Outpatient (REF) | payer OTHER, SELFPAY | END 2024-06-03 08:09 | disposition home or self-care (01) | LOC: HO.XRAY 08:08 | PROVIDERS: PCP Internal Medicine; Visit Provider Internal Medicine | DX: M79.672 Pain in left foot (principal); M79.671 Pain in right foot | CPT/HCPCS: 73630 ==

== ENCOUNTER 2024-06-18 14:59 | Outpatient (AMB) | payer OTHER, SELFPAY ==
[2024-06-18 15:00] VITALS: BP 140/76; PULSE 74; O2SAT 97; BMI 31.1
--- NOTE | 2024-06-18 15:00 | A.OFFVIS_ITS ---
Vital Signs 06/18/24 15:00 Height 6 ft 2 in Weight 242 lb 1.081 oz BMI 31.1 BP 140/76 H Blood Pressure Location Lt brachial Position Sitting Pulse 74 Pulse Source Pulse Oximeter Pulse Oximetry (%) 97 Oxygen Delivery Method Room Air Intake Visit Reasons: pre colonoscopy Intake Note: History of left inguinal hernia repair and lithotripsy. Relevant Flags or Indicators ? Requires Reimbursement Consultant? Naveen Li presents in office today for a scheduled colonoscopy consultation. No prior hx of colo. CC; Pt reports paternal uncle had colon cancer. Relevant GI Sx as reported per pt? None Reimbursement Consultant Required: Yes Reimbursement Consultant Services: Reimbursement Consultant Offered & Declined Reimbursement Consultant Name: Significant other Information Interpreted: non-clinical & clinical Accompanied by: Significant Other Allergies No Known Allergies Allergy (Verified 06/18/24 15:01) HPI HPI pre colonoscopy: Details: 49 year old? male here today for pre colonoscopy screening.? Patient was sent to us by his PCP.? This is his first colonoscopy screening.? Patient denies any gastrointestinal symptoms in the past or at present.? Paternal uncle was diagnosed with colorectal cancer.? Denies history of difficulty with sedation or anesthesia in the past.? Negative for history of sleep apnea. However patient's girlfriend reports that he snores a lot while sleeping.? Denies any history of cardiac, renal, pulmonary, or hepatic disease.?? No history of infectious? diseases like hepatitis A, B, C, HIV or tuberculosis.? Patient is not on any anticoagulation [facility] Medical History Vitamin D deficiency Primary osteoarthritis of right shoulder Elevated LFTs Obesity (BMI 30-39.9) Nephrolithiasis Renal colic Surgical History History of dermoid cyst excision History of left inguinal hernia repair Hx of cystoscopy Family History Other Family history non-contributory Social History Housing: Condominium Alcohol intake: never Patient Tobacco Use Status: Never used Tobacco e-Cigarette/Vaping Use: Never Used Second Hand Smoke Exposure: No service: No Current occupational status: employed Cognitive needs: No Hearing needs: No Vision needs: No Review of Systems Const Denies weight gain and Denies weight loss ENT Reports no additional complaints, Denies dysphagia and Denies odynophagia Card Reports no additional complaints Resp Reports no additional complaints GI Denies abdominal pain, Denies belching, Denies melena, Denies bloating, Denies change in bowel habits, Denies dysphagia, Denies excessive flatus, Denies dyspepsia, Reports heartburn (Infrequent), Denies diarrhea, Denies loose stools, Denies nausea, Denies odynophagia and Denies vomiting Reports no additional complaints Musc Reports no additional complaints Neuro Reports no additional complaints Psych Reports no additional complaints Endo Reports no additional complaints Physical Exam Vital Signs: Last Vital Signs Pulse 74 06/18/24 15:00 BP 140/76 H 06/18/24 15:00 Pulse Ox 97 06/18/24 15:00 Oxygen Delivery Method Room Air 06/18/24 15:00 BMI result Body Mass Index 31.1 Const General: healthy appearing and no acute distress Nutritional Appearance: obese Orientation/consciousness: patient oriented x3 Resp Effort & Inspection: normal respiratory effort, able to speak in complete sentences, no tracheal deviation and symmetric chest movement Auscultation: clear to auscultation bilaterally Cardio Rate: regular rate GI Inspection: Yes normal to inspection, No distended and Yes obesity Palpation (GI): Soft to palpation, not firm, nontender and No hepatosplenomegaly present Auscultation: normal bowel sounds General: Yes no CVA tenderness Back/Spine/Pelvis Back: no CVA tenderness Skin General skin exam: elasticity normal, turgor normal and dry skin Neuro General: patient oriented x3 Psych Appearance: grossly normal Mental Status: mental status grossly normal Assessment & Plan Assessment & Plan (1) Colon cancer screening: Code(s): Z12.11 - Encounter for screening for malignant neoplasm of colon Category: Medical Plan Patient denies any GI, cardiac or respiratory symptoms.? Denies any issues with anesthesia in the past.? Denies any history of sleep apnea.? No history infectious diseases in the past or present.? Not on any anticoagulation therapy.? Family history of CRC.? Patient denies melena, hematochezia, unintentional weight loss or ribbon like stools.? Discussed at length the pre-procedure,? prep, diet & medications as well as what to expect prior, during and after the procedure.?? Stressed the importance of good bowel prep.? Recommended the use of Vaseline or Calmoseptine OTC & baby wipes with bowel movements to promote comfort.? ?Patient verbalizes understanding and agrees to plan of care.? She was given the opportunity to ask questions and all questions answered.? We will see her after the procedure.? Medications: New bisacodyl (Dulcolax (bisacodyl)) take 4 tabs at noon the day before your colonoscopy 20 mg (4 x 5 mg) PO ONCE 1 day 4 tabs 0RF Z12.11 - Encounter for screening for malignant neoplasm of colon polyethylene glycol 3350 (Miralax) As directed by gastroenterology department at [facility] 238 grams PO ONCE 238 grams 0RF Z12.11 - Encounter for screening for malignant neoplasm of colon Coding Level of Care Code New Pt Level 3 (82086) Diagnoses Colon cancer screening Z12.11 Time Spent (min) 40 Comment 30 minutes spent with patient and additional 10 minutes spent reviewing his records
== END 2024-06-18 15:36 | disposition home or self-care (01) ==
PROVIDERS: PCP Internal Medicine; Visit Provider Nurse Practitioner Family
DX: Z12.11 Encounter for screening for malignant neoplasm of colon (principal); Z01.818 Encounter for other preprocedural examination
CPT/HCPCS: 99203

== ENCOUNTER → 2024-06-18 14:59 | Outpatient (BNVA) | payer OTHER, SELFPAY | PROVIDERS: PCP Internal Medicine; Visit Provider Nurse Practitioner Family | DX: Z12.11 Encounter for screening for malignant neoplasm of colon (principal); R79.89 Other specified abnormal findings of blood chemistry | CPT/HCPCS: 99202 ==

== ENCOUNTER 2024-07-01 15:02 | Outpatient (AMB) | payer OTHER, SELFPAY ==
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
== END 2024-07-01 15:40 | disposition home or self-care (01) ==
PROVIDERS: PCP Internal Medicine; Visit Provider Physician Assistant
DX: M47.816 Spondylosis without myelopathy or radiculopathy, lumbar region (principal)
CPT/HCPCS: 99204

== ENCOUNTER → 2024-07-01 15:02 | Outpatient (BNVA) | payer OTHER, SELFPAY | PROVIDERS: PCP Internal Medicine; Visit Provider Physician Assistant | DX: M47.816 Spondylosis without myelopathy or radiculopathy, lumbar region (principal); M16.11 Unilateral primary osteoarthritis, right hip | CPT/HCPCS: 99202 ==

== ENCOUNTER 2024-09-08 07:00 | Outpatient (RCR) | payer OTHER, SELFPAY ==
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
--- NOTE | 2024-10-29 09:32 | MHC.PT.DC ---
[facility] [place] [facility] [place] Office [place] Office [address] Chandu Dhaliwal [address] [phone] F: [phone] F: [phone] F: [phone] F: [phone] Physical Therapy Discharge Report Diagnosis: Rt LBP, LUMBAR DDD, Rt HIP PAIN Date of Surgery: Date of Evaluation: 08/29/24 Date of Discharge: 10/29/24 Treatments to Date: 3 Cancellations to Date: 4 No Shows to Date: 2 Discharge Status: Improved Function Visit Non-compliance Discharge Summary: JACOB DISPLAYED IMPROVED QUALITY OF MVMT AND INCR ACTIVITY MARTIN W/O ADVERSE RESPONSE-> REDUCED TISSUE IRRIT W IASTM, APPLIED KT FOR POSTURAL CARRYOVER/ FB; HIP FLEXIB INCREASING, THE Pt ATTENDED 4 PT SESSIONS IN WHICH A HEP WAS INITIATED AND WE ADDRESSED TISSUE TENSION/ LUMBOPELVIC ASYMM W MANUAL TECHNIQUES, AND EDUC HIM RE: MORE EFFICIENT POSTURE/ BODY MECHANICS. JACOB WOULD HAVE BENEFITTED FROM PT TO ADDRESS THE ABOVE FINDINGS; HOWEVER, HE CANC 4 APPTS AND DID NOT SHOW FOR THE 2 FOLLOWING SCHED APPTS-> HE IS DISCHARGED FROM PT AT THIS TIME PER OUR PT DEPT ATTENDANCE POLICY. Electronically signed by: TOMASZ ALLEN,PT Please sign and return to therapist. Thank you for your referral.
== END 2024-10-29 09:32 | disposition home or self-care (01) ==
LOC: HO.PT 07:00
PROVIDERS: PCP Internal Medicine; Visit Provider Internal Medicine
DX: M54.50 Low back pain, unspecified (principal); M51.369 Other intervertebral disc degeneration, lumbar region without mention of lumbar back pain or lower extremity pain
CPT/HCPCS: 97110; 97112; 97140; 97162

== ENCOUNTER 2024-09-14 20:29 | Emergency (ER) | payer OTHER, SELFPAY ==
--- NOTE | 2024-09-14 | ECG_ITS ---
Test Reason : CP Blood Pressure : */* mmHG Vent. Rate : 73 BPM Atrial Rate : 73 BPM P-R Int : 144 ms QRS Dur : 90 ms QT Int : 338 ms P-R-T Axes : 43 24 28 degrees QTcB Int : 372 ms Normal sinus rhythm Normal ECG No previous ECGs available Referred By: Generic ED Physician Electronically Signed By: NIDHI VELA
--- NOTE | ~2024-09-14 | XR_ITS ---
CLINICAL HISTORY: cough 2 view chest x-ray Comparison: None Findings: The lungs are clear. Normal size heart. No acute fracture. IMPRESSION: 1. No acute findings. This document has been electronically signed by: Cassandra Vega MD on 09/14/2024 21:30:03
--- NOTE | 2024-09-14 20:53 | ED.GENADULT ---
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 He reports that his has been sick since Sunday, 1 week ago. He believes she has bronchitis. The patient reports he has been sick for the last 5 days. He was cough, body aches, sore throat, headaches and fevers. He denies any medical problems Related Data Previous Rx's ?Medication ?Instructions ?Recorded bisacodyl 5 mg tablet,delayed 20 mg (4 x 5 mg) PO ONCE 1 day #4 06/18/24 release (Dulcolax (bisacodyl)) tabs polyethylene glycol 3350 17 238 g PO ONCE #238 grams 06/18/24 gram/dose oral powder (Miralax) cholecalciferol (vitamin D3) 25 25 mcg PO DAILY #90 caps 06/27/24 mcg (1,000 unit) capsule (Vitamin D3) benzonatate 200 mg capsule 200 mg PO TID PRN cough #20 caps 09/15/24 Allergies Allergy/AdvReac Type Severity Reaction Status Date / Time No Known Allergies Allergy Verified 09/14/24 20:57 Review of Systems Constitutional: Constitutional: Reports body ache(s), Reports chills, Reports fatigue, Reports fever(s), Reports headache(s), Reports malaise and Reports weakness Eyes: Eyes: Denies blurry vision ENT: Reports headache(s) and Reports sore throat Cardiovascular: Cardiovascular: Denies chest pain and Denies dyspnea Respiratory: Respiratory: Denies no additional respiratory complaints, Reports cough and Denies dyspnea Gastrointestinal: Gastrointestinal: Denies abdominal pain, Denies nausea and Denies vomiting Musculoskeletal: Musculoskeletal: Reports back pain Integumentary/Breasts: Skin/Breast: Denies rash Neurologic: Reports headache(s) and Reports weakness Psychiatric: Psychiatric: Denies anxiety Endocrine: Endocrine: Reports fatigue PMFSH Past Medical History Medical History Vitamin D deficiency Primary osteoarthritis of right shoulder Elevated LFTs Obesity (BMI 30-39.9) Nephrolithiasis Renal colic Surgical History History of dermoid cyst excision History of left inguinal hernia repair Hx of cystoscopy Family History Family History Other Family history non-contributory Social History Social History (Updated 07/01/24 @ 15:08 by Rosanna Keyes Jessy) Housing: Condominium Alcohol intake: never Patient Tobacco Use Status: Never used Tobacco e-Cigarette/Vaping Use: Never Used Second Hand Smoke Exposure: No Advance Directives: No Advance Directives Information Provided: Yes service: No Current occupational status: unemployed Cognitive needs: No Hearing needs: No Vision needs: No Physical Exam ED Vital Signs: Vital Signs - 24 hr 09/14/24 20:54 09/15/24 01:01 Temperature 98.1 F 99.0 F Pulse Rate 83 80 Respiratory Rate 20 20 Blood Pressure 127/78 129/81 Pulse Oximetry 97 94 Oxygen Delivery Method Room Air Room Air BMI result Body Mass Index 32.1 Const General: healthy appearing, comfortable, no acute distress, alert and awake Nutritional Appearance: well nourished Orientation/consciousness: patient oriented x3 HENMT Head: Yes normocephalic and Yes atraumatic Throat: Yes posterior oropharynx normal Eyes Eyelids: Yes eyelids normal Conjunctivae: conjunctivae normal Sclerae: sclerae normal Corneas: corneas normal Pupils: Equal, round and reactive pupils present EOM: EOMs intact bilaterally Neck Neck: Yes full ROM Resp Effort & Inspection: normal respiratory effort, able to speak in complete sentences, no audible wheezes and not labored Auscultation: clear to auscultation bilaterally Cardio Rate: regular rate Rhythm: regular rhythm GI Inspection: No distended Palpation (GI): Soft to palpation, not firm, nontender, no guarding and not rigid Skin General skin exam: elasticity normal Neuro General: patient oriented x3 Cranial nerves: Yes Equal, round and reactive pupils present and Yes Bilaterally intact EOM present Cognition (Neuro): normal cognition Extrem Other: Moving all extremities well without any obvious deformities Course Course Course Narrative: This is a Rapid Medical Exam performed in triage by Jeannine Amor PA-C. Full HPI, ROS and PE to be performed by primary ED provider. 49-year-old male with a past medical history of osteoarthritis cholelithiasis presenting to the ED c/o productive cough, sore throat, myalgias & SOB x5 days. Reports posterior rib & chest pain w/ coughing. PE: +dry cough appreciated, lungs CTA Plan: EKG, labs, CXR viral testing Medical Decision Making Medical Decision Making [facility] Narrative: 49-year-old male presents for evaluation of flu-like symptoms. His labs are reviewed, he has a mild transaminitis which is consistent with his baseline, he has a mild leukopenia which could not be consistent with a viral syndrome. Chest x-ray does not show any evidence of pneumonia or effusions. EKG is normal sinus rhythm with a rate of 73 beats minute. He rules out for ACS nonischemic EKG. The patient's symptoms are likely all attributed to influenza. He is outside the window for Tamiflu treatment, vital signs are stable. He will be discharged with symptomatic treatment Differential Diagnosis Differential Diagnoses: The differential diagnosis associated with the presentation includes Influenza COVID-19 Bronchitis Upper respiratory infection ACS less likely Admission/Observation Consideration of admission/observation: Escalation of care including admission/observation considered And ruled out for ACS, sepsis or hypoxia Lab Data [facility] Lab Attestation statement: I reviewed the patient's lab results. As above 09/14/24 21:13 09/14/24 21:13 Labs: Lab Results 09/14/24 Range/Units 21:13 WBC 4.0 L (4.8-10.8) X10*3/uL RBC 4.62 (4.60-5.80) X10*6/uL Hgb 14.1 (14.0-18.0) g/dl Hct 41.7 L (42.0-52.0) % MCV 90.3 (80.0-98.0) fL MCH 30.5 (27.0-33.0) pg MCHC 33.8 (31.0-36.0) g/dl RDW 12.3 (11.0-16.0) % Plt Count 151 L (160-400) X10*3/uL MPV 11.6 (9.4-12.4) fL Immature Gran % (Auto) 0.3 (0.0-0.4) % Neut % (Auto) 37.2 L (45-73) % Lymph % (Auto) 45.3 H (20-40) % Nuckolls % (Auto) 15.9 H (2-11) % Eos % (Auto) 0.8 (0-4) % Baso % (Auto) 0.5 (0-2) % Lymph # (Auto) 1.8 (1.2-4.9) X10*3/uL Nuckolls # (Auto) 0.6 (0.1-1.2) X10*3/uL Eos # (Auto) 0.0 (0.0-0.4) X10*3/uL Baso # (Auto) 0.0 (0.0-0.2) X10*3/uL Abs Immat Gran (auto) 0.01 (0.00-0.03) X10*3/uL Absolute Neuts (auto) 1.5 L (2.0-8.3) x10*3/uL Absolute Nucleated RBC 0.000 (0.0-0.012) X10*3/uL Nucleated RBC % (auto) 0.0 (0.0-0.2) /100WBC PT 12.2 (10.9-12.4) SEC INR 1.0 (0.9-1.1) Sodium 143 (135-145) mmol/L Potassium 3.7 (3.3-5.1) mmol/L Chloride 109 H (96-108) mmol/L Carbon Dioxide 26 (22-29) mmol/L Anion Gap 12 (12-20) BUN 16 (9-16) mg/dL Creatinine 0.93 (0.5-1.4) mg/dL Estim Creat Clear Calc 130.0 Estimated GFR > 60 Random Glucose 85 (60-115) mg/dL Calcium 8.7 (8.4-10.2) mg/dL Total Bilirubin 0.4 (0.0-1.0) mg/dL Direct Bilirubin 0.1 (0.0-0.5) mg/dL AST 69 H (5-37) U/L ALT 120 H (0-40) U/L Alkaline Phosphatase 88 (39-117) U/L Troponin I High Sens 6.9 (<3.5-35.0) ng/L Total Protein 7.2 (6.5-8.0) g/dL Albumin 3.9 (3.5-5.0) g/dL Influenza Type A (PCR) POSITIVE A (Negative) Influenza Type B (PCR) NEGATIVE (Negative) RSV RNA Qual (PCR) NEGATIVE (Negative) SARS-CoV-2 RNA (RT-PCR) NEGATIVE (Negative) S. pyogenes GrpA CHRISTINE Negative (Negative) Independent Interpretation I performed an independent interpretation of an: EKG (Sinus rhythm with a rate of [address] segment elevation or depression) and Plain X-Ray Interpretation: No focal infiltrate Radiology Impression Discussion of test interpretation with radiology: I have reviewed the radiologist's reading. Radiologist Impression: Findings: The lungs are clear. Normal size heart. No acute fracture. IMPRESSION: 1. No acute findings. This document has been electronically signed by: Cassandra Vega MD on 09/14/2024 21:30:03 Prescription Management I considered prescription management with: Antiviral (Outside the window for Tamiflu treated) Discharge Plan Discharge Clinical Impression: Influenza A Patient Disposition: Home, Self-Care Instructions: Influenza (ED) Additional Instructions: You tested positive for the flu. You may use ibuprofen/Tylenol as needed for fevers and body aches. Take Tessalon Perles as needed for coughing Follow-up with your primary doctor, return for new or worsening symptoms Your blood work and chest x-ray were reassuring Prescriptions: New benzonatate 200 mg capsule 200 mg PO TID PRN (Reason: cough) Qty: 20 0RF No Action cholecalciferol (vitamin D3) [Vitamin D3] 25 mcg (1,000 unit) capsule 25 mcg PO DAILY Qty: 90 0RF bisacodyl [Dulcolax (bisacodyl)] 5 mg tablet,delayed release (DR/EC) 20 mg PO ONCE 1 Days Qty: 4 0RF Rx Instructions: take 4 tabs at noon the day before your colonoscopy polyethylene glycol 3350 [Miralax] 17 gram/dose powder 238 g PO ONCE Qty: 238 0RF Rx Instructions: As directed by gastroenterology department at [facility] Print Language: English
[2024-09-14 20:54] VITALS: BP 127/78; PULSE 83; RESP 20; TEMP 36.7; O2SAT 97; BMI 32.1
[2024-09-14 21:26] LABS: MANUAL DIFF FLAG NO
[2024-09-14 21:28] LABS: Basophils Percent Auto 0.5 % (0-2); Eosinophils Percent Auto 0.8 % (0-4); Hematocrit 41.7 % (42.0-52.0); Hemoglobin 14.1 g/dl (14.0-18.0); Imm Gran Abs Auto 0.01 X10*3/uL (0.00-0.03); Imm Gran Pct Auto 0.3 % (0.0-0.4); Lymphocytes Absolute Auto 1.8 X10*3/uL (1.2-4.9); Lymphocytes Percent Auto 45.3 % (20-40); Mean Corpuscular HGB Conc 33.8 g/dl (31.0-36.0); Mean Corpuscular Hemoglobin 30.5 pg (27.0-33.0); Mean Corpuscular Volume 90.3 fL (80.0-98.0); Mean Platelet Volume 11.6 fL (9.4-12.4); Monocytes Absolute Auto 0.6 X10*3/uL (0.1-1.2); Monocytes Percent Auto 15.9 % (2-11); Neutrophils Absolute Auto 1.5 x10*3/uL (2.0-8.3); Neutrophils Percent Auto 37.2 % (45-73); Platelet Count 151 X10*3/uL (160-400); Red Blood Count 4.62 X10*6/uL (4.60-5.80); Red Cell Distribution Width 12.3 % (11.0-16.0)
[2024-09-14 21:36] LABS: Prothrombin Time 12.2 SEC (10.9-12.4)
[2024-09-14 21:43] LABS: Alanine Aminotransferase 120 U/L (0-40); Albumin Level 3.9 g/dL (3.5-5.0); Alkaline Phosphatase 88 U/L (39-117); Anion Gap 12 (12-20); Aspartate Amino Transferase 69 U/L (5-37); Bilirubin Direct 0.1 mg/dL (0.0-0.5); Bilirubin Total 0.4 mg/dL (0.0-1.0); Blood Urea Nitrogen 16 mg/dL (9-16); Calcium 8.7 mg/dL (8.4-10.2); Carbon Dioxide 26 mmol/L (22-29); Chloride 109 mmol/L (96-108); Estimated Glomerular Filt Rate > 60; Glucose Random 85 mg/dL (60-115); Potassium 3.7 mmol/L (3.3-5.1); Sodium 143 mmol/L (135-145); Total Protein 7.2 g/dL (6.5-8.0)
[2024-09-14 21:46] LABS: IDNOW Serial# 58CA691E; Strep A Nucleic Acid Negative (Negative)
[2024-09-14 21:50] LABS: Troponin-I High Sensitivity 6.9 ng/L (<3.5-35.0)
[2024-09-14 22:07] LABS: Influenza A PCR POSITIVE (Negative); Influenza B PCR NEGATIVE (Negative); Resp Syncy Virus RNA Qual PCR NEGATIVE (Negative); SARS COV2 PCR INHOUSE NEGATIVE (Negative)
[2024-09-15 01:01] VITALS: BP 129/81; PULSE 80; RESP 20; TEMP 37.2; O2SAT 94
[2024-09-15 01:53] VITALS: BP 129/81; PULSE 80; RESP 20; TEMP 37.2; O2SAT 94
== END 2024-09-15 01:55 | disposition home or self-care (01) ==
PROVIDERS: Physician Assistant; Emergency Provider Emergency Medicine Emergency Medical Services
DX: J10.1 Influenza due to other identified influenza virus with other respiratory manifestations (principal); R07.0 Pain in throat; M54.50 Low back pain, unspecified; R07.89 Other chest pain; M79.10 Myalgia, unspecified site; Z03.818 Encounter for observation for suspected exposure to other biological agents ruled out; Z79.899 Other long term (current) drug therapy
CPT/HCPCS: 0241U; 36415; 71046; 80048; 80076; 84484; 85025; 85610; 87651; 93005; 99283; 99284

== ENCOUNTER → 2024-09-14 20:44 | Outpatient (BNV) | payer OTHER, SELFPAY | PROVIDERS: Emergency Provider Emergency Medicine Emergency Medical Services; Visit Provider Internal Medicine | DX: R07.9 Chest pain, unspecified (principal) | CPT/HCPCS: 93010 ==

== ENCOUNTER → 2024-09-14 20:53 | Outpatient (BNV) | payer OTHER, SELFPAY | PROVIDERS: Visit Provider Student in an Organized Health Care Education/Training Program | DX: R05.9 Cough, unspecified (principal) | CPT/HCPCS: 71046 ==

== ENCOUNTER 2024-10-17 09:27 | Outpatient (AMB) | payer OTHER, SELFPAY ==
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
[2024-10-17 09:37] VITALS: BMI 32.1
== END 2024-10-17 10:18 | disposition home or self-care (01) ==
LOC: HO.HOS 09:27
PROVIDERS: PCP Internal Medicine; Visit Provider Physical Medicine & Rehabilitation
DX: M53.3 Sacrococcygeal disorders, not elsewhere classified (principal); M47.816 Spondylosis without myelopathy or radiculopathy, lumbar region
CPT/HCPCS: 99203

== ENCOUNTER → 2024-10-17 09:27 | Outpatient (BNVA) | payer OTHER, SELFPAY | PROVIDERS: PCP Internal Medicine; Visit Provider Physical Medicine & Rehabilitation | DX: M53.3 Sacrococcygeal disorders, not elsewhere classified (principal); M47.816 Spondylosis without myelopathy or radiculopathy, lumbar region | CPT/HCPCS: 99202 ==

== ENCOUNTER 2024-11-26 15:57 | Outpatient (AMB) | payer OTHER, SELFPAY ==
[2024-11-26 16:00] VITALS: BP 132/80; PULSE 76; RESP 18; TEMP 36.9; O2SAT 96; BMI 32.2
--- NOTE | 2024-11-26 16:00 | MHC.PC.OV ---
Vital Signs 11/26/24 16:00 Height 6 ft 2 in Weight 250 lb 12.8 oz BMI 32.2 BP 132/80 Blood Pressure Location Lt brachial Position Sitting Respiration 18 Pulse 76 Pulse Source Pulse Oximeter Temp 98.4 F Temp Source Oral Pulse Oximetry (%) 96 Oxygen Delivery Method Room Air Intake Visit Reasons: dyslipidemia, delvin LFTs, vitamin D def, OA, lum DDD Billing Spec Required: No Billing Spec Name: Pt refused Accompanied by: Significant Other Allergies No Known Allergies Allergy (Verified 11/26/24 16:14) Medication List - Last Reconciled 11/26/24 by JOSE Salmon cholecalciferol (vitamin D3) (Vitamin D3) 25 mcg PO DAILY Tobacco use date assessed: 11/26/24 Dental Screening Dental Screen Date: 11/26/24 Did you have a dental visit in the last 12 months?: Yes Did you have a dental problem in the last 6 months where you did not have access to dental care?: No Was dental information given to patient?: Patient has dentist HPI dyslipidemia, delvin LFTs, vitamin D def, OA, lum DDD HPI Details The patient is a 49-year-old male attending a follow-up to address multiple ongoing health concerns, including unresolved hypercholesterolemia without recent cholesterol tests, and previous hospitalization with influenza A. Initial management for hypercholesterolemia was not completed owing to gaps in laboratory follow-up. The patient describes chronic bilateral foot pain due to a partial effusion of the metatarsal joint of the great toe confirmed by X-ray and has ongoing back pain, complicating his daily tasks that require prolonged walking or standing. To date, physical therapy was left incomplete due to influenza, requiring a restart. He also raises concerns of 3?4 months of blurred vision with continuous eye tearing, bilateral pterygium noted on exam. Further, a language barrier has affected effective communication and continuity of care, evidenced by a missed colonoscopy scheduled for September and incomplete administrative tasks for handicap facilitation due to back problems. [facility] Medical History Vitamin D deficiency Primary osteoarthritis of right shoulder Elevated LFTs Obesity (BMI 30-39.9) Nephrolithiasis Renal colic Surgical History History of dermoid cyst excision History of left inguinal hernia repair Hx of cystoscopy Family History Other Family history non-contributory Social History Housing: Condominium Alcohol intake: never Patient Tobacco Use Status: Never used Tobacco e-Cigarette/Vaping Use: Never Used Second Hand Smoke Exposure: No service: No Current occupational status: unemployed Cognitive needs: No Hearing needs: No Vision needs: No Questionnaire PHQ-9 Over the last 2 weeks, how often have you been bothered by any of the following problems? 1. Little interest or pleasure in doing things: several days 2. Feeling down, depressed, or hopeless: not at all 3. Trouble falling or staying asleep, or sleeping too much: several days 4. Feeling tired or having little energy: not at all 5. Poor appetite or overeating: not at all 6. Feeling bad about yourself - or that you are a failure or have let yourself or your family down: not at all 7. Trouble concentrating on things, such as reading the newspaper or watching television: not at all 8. Moving or speaking so slowly that other people could have noticed. Or the opposite - being so fidgety or restless that you have been moving around a lot more than usual: not at all 9. Thoughts that you would be better off or of hurting yourself in some way: not at all Total score: 2 Depression Screening Interpretation: Negative Depression Screening Done: Yes 57795 - PHQ-9 Billing: Yes Source: Developed by Drs. Pola Bliss, Chantelle Swartz, Cesar Boyd and colleagues, with an educational jonny from [employer]. Thrive Questionnaire Date Thrive assessed: 11/26/24 I am a: Patient What is your living situation today?: I have a steady place to live Within the past 12 months, did the food you bought not last and you didn't have the money to get more?: I choose not to answer this question Within the past 12 months, did you worry whether your food would run out before you got money to buy more?: I choose not to answer this question Do you have trouble paying for medicines?: No Do you have trouble getting transportation to medical appointments?: No Do you have trouble paying your heating and electricity bill?: No Do you have trouble taking care of your child, family member or friend?: I choose not to answer this question Do you have trouble with day-to-day activities such as bathing, preparing meals, shopping, managing finances, etc.?: Yes Are you currently unemployed and looking for a job?: No Are you interested in more education?: No Please select the resources that you would like help with: None Currently or been in a relationship where the following occur: I choose not to answer THRIVE Score: 0 AUDIT C Alcohol Use Questionnaire (AUDIT-C) 1. How often do you have a drink containing alcohol?: Never Total Score: 0 Score Reviewed/Action Taken: No MARSHA-7 AMB Questionnaire MARSHA-7 Date MARSHA - 7 assessed: 11/26/24 Feeling nervous, anxious, or on edge: 0 = Not at all Not being able to stop or control worryin = Several days Worrying too much about different things: 1 = Several days Trouble relaxin = Several days Being so restless that it is hard to sit still: 1 = Several days Becoming easily annoyed or irritable: 0 = Not at all Feeling afraid as if something awful might happen: 0 = Not at all Total MARSHA-7 score (0-4 normal; 5-9 mild; 10-14 moderate; 15-21 severe): 4 Source: Developed by Drs. Pola Bliss, Chantelle Swartz, Cesar Boyd and colleagues, with an educational jonny from [employer]. MARSHA-7 Assessment Billing MARSHA-7 Assessment Tool: MARSHA-7 Assessment 82335 Review of Systems Const Denies headache(s) Eyes Reports blurry vision, Denies loss of vision and Reports other (excessive eye tearing) ENT Denies vertigo, Denies dizziness, Denies headache(s) and Denies sore throat Card Denies chest pain, Denies leg edema and Denies lightheadedness Resp Denies cough, Denies hemoptysis and Denies wheezing GI Denies abdominal pain, Denies melena, Denies constipation, Denies diarrhea and Denies vomiting Denies dysuria, Denies urinary frequency and Denies urinary urgency Musc Reports back pain, Denies arthralgias, Denies joint swelling, Denies numbness, Denies tingling and Reports other (foot pain) Neuro Denies Abnormal speech present, Denies behavioral changes, Denies vertigo, Denies dizziness, Denies headache(s), Denies loss of vision, Denies memory loss, Denies numbness and Denies tingling Psych Denies anxiety, Denies behavioral changes, Denies depression, Denies memory loss and Denies panic attacks Reji/Lymph Denies easy bleeding and Denies easy bruising Aller/Immun Denies wheezing Physical exam (Primary Care) Vital Signs: Last Vital Signs Temp 98.4 F 11/26/24 16:00 Pulse 76 11/26/24 16:00 Resp 18 11/26/24 16:00 BP 132/80 11/26/24 16:00 Pulse Ox 96 11/26/24 16:00 Oxygen Delivery Method Room Air 11/26/24 16:00 BMI result Body Mass Index 32.2 Tobacco/Smoking Status: Tobacco use Status Tobacco use date assessed 11/26/24 11/26/24 16:08 Patient Tobacco Use Status Never used Tobacco 11/26/24 16:08 e-Cigarette/Vaping Use Never Used 11/26/24 16:08 PHQ-9: PHQ-9 Score PHQ-9: Total score 2 11/26/24 16:22 Depression Screening Interpretation: Negative Thrive Assessment: Date of Thrive Assessment Date Thrive assessed 11/26/24 11/26/24 16:08 Currently or been in a relationship where the following occur: I choose not to answer Const General: healthy appearing, no acute distress, alert and awake Nutritional Appearance: well nourished Orientation/consciousness: oriented to person, oriented to place and oriented to time HENMT Ears: TM's normal bilaterally General nose exam: Normal nasal mucous membranes and turbinates present Eyes Conjunctivae: conjunctivae normal and conjunctival abnormal bilateral pterygium Sclerae: sclerae normal and scleral abnormal Corneas: corneas abnormal bilateral (pterygium growing into/touching corneas) Pupils: Equal, round and reactive pupils present Neck Neck: Yes no lymphadenopathy and Yes no JVD Thyroid: Thyroid normal Carotids: no bruits Resp Effort & Inspection: normal respiratory effort and not tachypneic Auscultation: no crackles, no rales, no rhonchi and no wheezes Cardio Rate: regular rate Rhythm: regular rhythm Heart sounds: no murmurs and normal S1 and S2 GI Palpation (GI): Soft to palpation, nontender, no hepatomegaly and no splenomegaly Auscultation: normal bowel sounds Back/Spine/Pelvis Thoracic/Lumbar Spine: lumbar spinal tenderness Skin General skin exam: no rashes or lesions noted and dry skin Neuro General: oriented to person, oriented to place and oriented to time Cranial nerves: Yes Equal, round and reactive pupils present Speech: No Abnormal speech present Gait exam (Neuro): Normal gait present Motor exam (neuro): no tremor noted Extrem Right upper extremity: full ROM Left upper extremity: full ROM Right lower extremity: full ROM; no edema Left lower extremity: full ROM; no edema Psych Mental Status: mental status grossly normal Speech and movement: Normal speech and movement present Affect: normal affect Attitude: cooperative Thought process: Normal thought process present Results Reviewed Results Reviewed: Laboratory Tests 09/14/24 21:13 WBC 4.0 L RBC 4.62 Hgb 14.1 Hct 41.7 L MCV 90.3 MCH 30.5 RDW 12.3 Plt Count 151 L Sodium 143 Potassium 3.7 Chloride 109 H Carbon Dioxide 26 Anion Gap 12 BUN 16 Creatinine 0.93 Estim Creat Clear Calc 130.0 Estimated GFR > 60 Random Glucose 85 Calcium 8.7 Total Bilirubin 0.4 Direct Bilirubin 0.1 AST 69 H ALT 120 H Alkaline Phosphatase 88 Troponin I High Sens 6.9 Total Protein 7.2 Albumin 3.9 Coding Level of Care Code Est Pt Level 4 (39384) Diagnoses Pterygium of both eyes H11.003 Blurry vision, bilateral H53.8 Spondylosis of lumbar region without myelopathy or radiculopathy M47.816 Spinal osteoarthritis complication: without myelopathy or radiculopathy Vitamin D deficiency E55.9 Impaired fasting glucose R73.01 Elevated LFTs R79.89 Bilateral foot pain M79.671; M79.672 Degeneration of intervertebral disc of lumbar region with discogenic back pain M51.360 Disc-related pain type: discogenic back pain only Obesity (BMI 30-39.9) E66.9 Additional Codes MARSHA-7 Assessment Billing - MARSHA-7 Assessment Tool: MARSHA-7 Assessment 80443 ([id number]) PHQ-9 - 30968 - PHQ-9 Billing: Yes ([id number]) Time Spent (min) 42 Assessment & Plan Assessment & Plan (1) Pterygium of both eyes: Code(s): H11.003 - Unspecified pterygium of eye, bilateral Category: Medical (2) Blurry vision, bilateral: Code(s): H53.8 - Other visual disturbances Category: Medical (3) Osteoarthritis of lumbar spine: Code(s): M47.816 - Spondylosis without myelopathy or radiculopathy, lumbar region Category: Medical Qualifiers: Spinal osteoarthritis complication: without myelopathy or radiculopathy Qualified Code(s): M47.816 - Spondylosis without myelopathy or radiculopathy, lumbar region (4) Vitamin D deficiency: Code(s): E55.9 - Vitamin D deficiency, unspecified Category: Medical (5) Impaired fasting glucose: Code(s): R73.01 - Impaired fasting glucose Category: Medical (6) Elevated LFTs: Code(s): R79.89 - Other specified abnormal findings of blood chemistry Category: Medical (7) Bilateral foot pain: Code(s): M79.671 - Pain in right foot; M79.672 - Pain in left foot Category: Medical (8) Lumbar degenerative disc disease: Code(s): M51.369 - Other intervertebral disc degeneration, lumbar region without mention of lumbar back pain or lower extremity pain Category: Medical Qualifiers: Disc-related pain type: discogenic back pain only Qualified Code(s): M51.360 - Other intervertebral disc degeneration, lumbar region with discogenic back pain only (9) Obesity (BMI 30-39.9): Code(s): E66.9 - Obesity, unspecified Category: Medical Plan We will facilitate follow-up on outstanding triglycerides testing to manage hypercholesterolemia effectively. NSAIDs are recommended for managing inflammatory pain in the foot, with close monitoring for any gastrointestinal side effects. A referral was made to an wound specialist to evaluate concerning visual disturbances, suggestive of Pterygium. For the back pain, I emphasized the importance of resuming physical therapy, and accommodating mobility needs through obtaining a handicap pass was discussed. The patient was already referred to Podiatry by Dr. Seymour for foot pain on previous visit. Efforts are in place to address communication difficulties, particularly with missed colonoscopy follow-ups and obtaining necessary forms. The patient has a cbc/cmp that were done in the hospital two months ago. These were reviewed the patient due to the increase in liver enzymes noted. Will add a liver panel to his scheduled and encourage the patient to get his blood work done bridget. Continue cholecalciferol 25 mcg daily, reinforced a diet low in sugar/carbohydrate/cholesterol and activity as tolerated. Patient was informed and verbally consented to the use of an ambient scribe for clinic note documentation during this visit. Orders: Orders Liver Panel 11/26/24 R79.89 - Other specified abnormal findings of blood chemistry Referrals Ophthalmology Referral H11.003 - Unspecified pterygium of eye, bilateral, H53.8 - Other visual disturbances Medications: Refilled cholecalciferol (vitamin D3) (Vitamin D3) 25 mcg PO DAILY 90 caps 0RF Patient Instructions: - Schedule and complete the triglycerides lab test to monitor cholesterol levels. - Take NSAIDs as recommended, ensuring food intake prior to medication. - Contact the gastroenterology office using the provided number to reschedule the colonoscopy. - Restart physical therapy as advised by referral. - Follow up with an wound specialist for potential pterygium evaluation. - Arrange for the completion of forms necessary for a handicap pass with front staff command and control officer. - Ensure adequate food intake with NSAIDs to prevent stomach upset. - Submit the handicap pass request form to our office for processing.
== END 2024-11-26 16:44 | disposition home or self-care (01) ==
LOC: HO.HMCH 15:58
PROVIDERS: PCP Internal Medicine
DX: H11.003 Unspecified pterygium of eye, bilateral (principal); H53.8 Other visual disturbances; E66.9 Obesity, unspecified; Z68.32 Body mass index [BMI] 32.0-32.9, adult; M47.816 Spondylosis without myelopathy or radiculopathy, lumbar region; E55.9 Vitamin D deficiency, unspecified; R73.01 Impaired fasting glucose; R79.89 Other specified abnormal findings of blood chemistry; M79.671 Pain in right foot; M79.672 Pain in left foot; M51.360 Other intervertebral disc degeneration, lumbar region with discogenic back pain only

== ENCOUNTER → 2024-11-26 15:57 | Outpatient (BNVA) | payer OTHER, SELFPAY | PROVIDERS: PCP Internal Medicine | DX: H11.003 Unspecified pterygium of eye, bilateral (principal); H53.8 Other visual disturbances; M47.816 Spondylosis without myelopathy or radiculopathy, lumbar region; E55.9 Vitamin D deficiency, unspecified; R73.01 Impaired fasting glucose; R79.89 Other specified abnormal findings of blood chemistry; M79.671 Pain in right foot; M79.672 Pain in left foot; M51.360 Other intervertebral disc degeneration, lumbar region with discogenic back pain only; E66.9 Obesity, unspecified | CPT/HCPCS: 96127; 99212 ==

== ENCOUNTER 2024-12-02 07:01 | Outpatient (REF) | payer OTHER, SELFPAY ==
[2024-12-02 07:53] LABS: Albumin Level 4.1 g/dL (3.5-5.0); Alkaline Phosphatase 93 U/L (39-117); Aspartate Amino Transferase 61 U/L (5-37); Bilirubin Direct 0.2 mg/dL (0.0-0.5); Bilirubin Total 0.8 mg/dL (0.0-1.0); Total Protein 6.9 g/dL (6.5-8.0)
[2024-12-02 08:38] LABS: Alanine Aminotransferase 114 U/L (0-40)
== END 2024-12-02 07:02 | disposition home or self-care (01) ==
LOC: HO.LAB 07:01
PROVIDERS: Absent Provider Internal Medicine; PCP Internal Medicine
DX: R79.89 Other specified abnormal findings of blood chemistry (principal)
CPT/HCPCS: 36415; 80076

== ENCOUNTER 2025-01-13 07:03 | Outpatient (RCR) | payer OTHER, SELFPAY | END 2025-03-05 10:26 | disposition home or self-care (01) | LOC: HO.PT 07:03 | PROVIDERS: PCP Internal Medicine; Visit Provider Physical Medicine & Rehabilitation | DX: M53.3 Sacrococcygeal disorders, not elsewhere classified (principal); M47.816 Spondylosis without myelopathy or radiculopathy, lumbar region | CPT/HCPCS: 97110; 97162; 97530; 97535 ==

== ENCOUNTER 2025-01-29 08:25 | Outpatient (AMB) | payer OTHER, SELFPAY ==
[2025-01-29 08:27] VITALS: BMI 32.1
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
== END 2025-01-29 08:49 | disposition home or self-care (01) ==
LOC: HO.HOS 08:26
PROVIDERS: PCP Internal Medicine; Visit Provider Physical Medicine & Rehabilitation
DX: M53.3 Sacrococcygeal disorders, not elsewhere classified (principal)
CPT/HCPCS: 99213

== ENCOUNTER → 2025-01-29 08:25 | Outpatient (BNVA) | payer OTHER, SELFPAY | PROVIDERS: PCP Internal Medicine; Visit Provider Physical Medicine & Rehabilitation | DX: M25.551 Pain in right hip (principal); M53.3 Sacrococcygeal disorders, not elsewhere classified | CPT/HCPCS: 99212 ==

== ENCOUNTER 2025-03-26 16:04 | Outpatient (AMB) | payer OTHER, SELFPAY ==
[2025-03-26 16:09] VITALS: BP 140/96; PULSE 78; TEMP 36.2; O2SAT 95; BMI 32.2
--- NOTE | 2025-03-26 16:09 | A.OFFPC_ITS ---
Vital Signs 03/26/25 16:09 Height 6 ft 2 in Weight 251 lb BMI 32.2 BP 140/96 H Blood Pressure Location Lt brachial Position Sitting Pulse 78 Pulse Source Pulse Oximeter Temp 97.1 F Temp Source Temporal Artery Scan Pulse Oximetry (%) 95 Oxygen Delivery Method Room Air Intake Visit Reasons: LFT/hld/DDD Accompanied by: Significant Other Allergies No Known Allergies Allergy (Verified 03/28/25 01:37) Medication List - Last Reconciled 03/28/25 by Tunde Seymour MD cholecalciferol (vitamin D3) (Vitamin D3) 25 mcg PO DAILY Tobacco use date assessed: 03/26/25 Dental Screening Dental Screen Date: 03/26/25 Did you have a dental visit in the last 12 months?: Yes Did you have a dental problem in the last 6 months where you did not have access to dental care?: No Was dental information given to patient?: Patient has dentist HPI LFT/hld/DDD HPI Details Patient comes in today for his follow up visit States that he feels okay and that his low back pain has improved a lot with physical therapy He denies any headaches or dizziness Denies any chest pains, no SOB No nausea/vomiting, no abdominal pain No change in bowel habits noted He has some follow up labs done about 3 months ago - to discuss his results [facility] Medical History Vitamin D deficiency Primary osteoarthritis of right shoulder Elevated LFTs Obesity (BMI 30-39.9) Nephrolithiasis Renal colic Surgical History History of dermoid cyst excision History of left inguinal hernia repair Hx of cystoscopy Family History Other Family history non-contributory Social History Housing: Condominium Alcohol intake: never Patient Tobacco Use Status: Never used Tobacco e-Cigarette/Vaping Use: Never Used Second Hand Smoke Exposure: No service: No Current occupational status: unemployed Cognitive needs: No Hearing needs: No Vision needs: No Questionnaire PHQ-9 Over the last 2 weeks, how often have you been bothered by any of the following problems? 1. Little interest or pleasure in doing things: several days 2. Feeling down, depressed, or hopeless: not at all 3. Trouble falling or staying asleep, or sleeping too much: several days 4. Feeling tired or having little energy: not at all 5. Poor appetite or overeating: not at all 6. Feeling bad about yourself - or that you are a failure or have let yourself or your family down: not at all 7. Trouble concentrating on things, such as reading the newspaper or watching television: not at all 8. Moving or speaking so slowly that other people could have noticed. Or the opposite - being so fidgety or restless that you have been moving around a lot more than usual: not at all 9. Thoughts that you would be better off or of hurting yourself in some way: not at all Total score: 2 Depression Screening Interpretation: Negative Depression Screening Done: Yes 19427 - PHQ-9 Billing: Yes Source: Developed by Drs. Pola Bliss, Chantelle Swartz, Cesar Boyd and colleagues, with an educational jonny from [employer]. Thrive Questionnaire Date Thrive assessed: 11/26/24 I am a: Patient What is your living situation today?: I have a steady place to live Within the past 12 months, did the food you bought not last and you didn't have the money to get more?: I choose not to answer this question Within the past 12 months, did you worry whether your food would run out before you got money to buy more?: I choose not to answer this question Do you have trouble paying for medicines?: No Do you have trouble getting transportation to medical appointments?: No Do you have trouble paying your heating and electricity bill?: No Do you have trouble taking care of your child, family member or friend?: I choose not to answer this question Do you have trouble with day-to-day activities such as bathing, preparing meals, shopping, managing finances, etc.?: Yes Are you currently unemployed and looking for a job?: No Are you interested in more education?: No Please select the resources that you would like help with: None Currently or been in a relationship where the following occur: I choose not to answer THRIVE Score: 0 AUDIT C Alcohol Use Questionnaire (AUDIT-C) 1. How often do you have a drink containing alcohol?: Never 3. How often do you have six or more drinks on one occasion?: Never Total Score: 0 Score Reviewed/Action Taken: Yes MARSHA-7 AMB Questionnaire MARSHA-7 Date MARSHA - 7 assessed: 11/26/24 Feeling nervous, anxious, or on edge: 0 = Not at all Not being able to stop or control worryin = Several days Worrying too much about different things: 1 = Several days Trouble relaxin = Several days Being so restless that it is hard to sit still: 1 = Several days Becoming easily annoyed or irritable: 0 = Not at all Feeling afraid as if something awful might happen: 0 = Not at all Total MARSHA-7 score (0-4 normal; 5-9 mild; 10-14 moderate; 15-21 severe): 4 Source: Developed by Drs. Pola Bliss, Chantelle Swartz, Cesar Boyd and colleagues, with an educational jonny from [employer]. Review of Systems Const Denies chills, Denies fatigue, Denies fever(s) and Denies headache(s) ENT Denies dysphagia, Denies dizziness, Denies otalgia, Denies headache(s), Denies neck pain, Denies odynophagia and Denies sore throat Card Denies chest pain, Denies irregular heart rhythm, Denies palpitations and Denies dyspnea Resp Denies chest congestion, Denies cough and Denies dyspnea GI Denies abdominal pain, Denies constipation, Denies dysphagia, Denies heartburn, Denies diarrhea, Denies nausea, Denies odynophagia and Denies vomiting Denies hematuria, Denies difficulty urinating, Denies dysuria, Denies nocturia and Denies urinary frequency Musc Reports back pain (over the right lower back ), Reports arthralgias (around the right hip area), Denies neck pain and Reports numbness (right leg goes numb at times ) Skin/Breast Denies rash Neuro Denies dizziness, Denies headache(s), Reports numbness (right leg goes numb at times ) and Denies paresthesias Endo Denies fatigue and Denies palpitations Physical exam (Primary Care) Vital Signs: Last Vital Signs Temp 97.1 F 03/26/25 16:09 Pulse 78 03/26/25 16:09 BP 140/96 H 03/26/25 16:09 Pulse Ox 95 03/26/25 16:09 Oxygen Delivery Method Room Air 03/26/25 16:09 BMI result Body Mass Index 32.2 Tobacco/Smoking Status: Tobacco use Status Tobacco use date assessed 03/26/25 03/26/25 16:14 Patient Tobacco Use Status Never used Tobacco 03/26/25 16:10 e-Cigarette/Vaping Use Never Used 03/26/25 16:10 PHQ-9: PHQ-9 Score PHQ-9: Total score 2 03/26/25 17:07 Depression Screening Interpretation: Negative Thrive Assessment: Date of Thrive Assessment Date Thrive assessed 11/26/24 03/26/25 16:10 Currently or been in a relationship where the following occur: I choose not to answer Const General: no acute distress and alert HENMT Ears: TM's normal bilaterally and EAC's normal Throat: Yes posterior oropharynx normal and Yes tonsils normal (no TP congestion) Neck Neck: Yes supple and No lymphadenopathy Thyroid: Thyroid normal Resp Auscultation: clear to auscultation bilaterally, no rales and no wheezes Cardio Rate: regular rate Rhythm: regular rhythm Heart sounds: no murmurs GI Palpation (GI): Soft to palpation and nontender Auscultation: normal bowel sounds General: Yes no CVA tenderness Back/Spine/Pelvis Back: no CVA tenderness Thoracic/Lumbar Spine: No thoracic spinal tenderness and lumbar spinal tenderness (tenderness is mostly to the right side of the lumbar spine at L1-L2) Skin Rashes: no rashes Extrem Other: no tenderness elicited on exam of both feet General: Yes no clubbing, cyanosis or edema Right lower extremity: hip/thigh Details: tenderness Location: of the hip Location: anterolaterally Results Reviewed Results Reviewed: Laboratory Tests 12/02/24 07:06 AST 61 H ALT 114 H Alkaline Phosphatase 93 Coding Level of Care Code Est Pt Level 4 (98250) Diagnoses Elevated LFTs R79.89 Elevated blood pressure reading in office without diagnosis of hypertension R03.0 Impaired fasting glucose R73.01 Vitamin D deficiency E55.9 Nephrolithiasis N20.0 Degeneration of intervertebral disc of lumbar region with discogenic back pain M51.360 Disc-related pain type: discogenic back pain only Primary osteoarthritis of right shoulder M19.011 Bilateral foot pain M79.671; M79.672 Obesity (BMI 30-39.9) E66.9 Additional Codes PHQ-9 - 07426 - PHQ-9 Billing: Yes ([id number]) Assessment & Plan Assessment & Plan (1) Elevated LFTs: Code(s): R79.89 - Other specified abnormal findings of blood chemistry Category: Medical Plan: Patient's LFTs were elevated previously and these have gone up further on his labs done back n November 2024 Will send him for abdominal US for further evaluation Will also send him for some repeat labs [facility] for follow up, including a liver fibrosis panel (2) Elevated blood pressure reading in office without diagnosis of hypertension: Code(s): R03.0 - Elevated blood-pressure reading, without diagnosis of hypertension Category: Medical Plan: Reinforced low sodium diet - advised that systolic BP should be 120 mm or less to be considered normal He is advised that losing weight may also help with his blood pressure but if his BP continues to stay high, we will need to consider starting him on BP meds (3) Impaired fasting glucose: Code(s): R73.01 - Impaired fasting glucose Category: Medical Plan: Reinforce low calorie/low carb diet Will recheck his FBS for follow-up (4) Vitamin D deficiency: Code(s): E55.9 - Vitamin D deficiency, unspecified Category: Medical Plan: Continue Vitamin D3 2000 units QD (5) Nephrolithiasis: Comment: S/P stenting (left) Code(s): N20.0 - Calculus of kidney Category: Medical Plan: Follow up with urology as scheduled for continuing management (6) Lumbar degenerative disc disease: Code(s): M51.369 - Other intervertebral disc degeneration, lumbar region without mention of lumbar back pain or lower extremity pain Category: Medical Qualifiers: Disc-related pain type: discogenic back pain only Qualified Code(s): M51.360 - Other intervertebral disc degeneration, lumbar region with discogenic back pain only Plan: Reinforced activity and weight-lifting restrictions X-rays of the lumbar spine done back in January 2024 revealed (+) mild to moderate multilevel degenerative disc disease, with normal alignment and no fracture He was referred to physical therapy, which he states have helped a lot with his low back pain (7) Primary osteoarthritis of right shoulder: Code(s): M19.011 - Primary osteoarthritis, right shoulder Category: Medical Plan: X-rays of the right shoulder done back in January 2024 revealed (+) mild acromioclavicular and glenohumeral osteoarthritis with a lateral subacromial spur Follow up with orthopedics as scheduled (8) Bilateral foot pain: Code(s): M79.671 - Pain in right foot; M79.672 - Pain in left foot Category: Medical Plan: X-rays of both feet done back in May 2024 revealed (+) 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 Follow up with podiatry as scheduled (9) Obesity (BMI 30-39.9): Code(s): E66.9 - Obesity, unspecified Category: Medical Plan: Reinforce diet/exercise as tolerated/lose weight Plan Follow up in 4 months Orders: Orders US abdomen complete 03/26/25 R79.89 - Other specified abnormal findings of blood chemistry Comprehensive [place]. Panel Fast 03/26/25 E78.00 - Pure hypercholesterolemia, unspecified TSH reflex Free T4 03/26/25 E78.00 - Pure hypercholesterolemia, unspecified Complete Blood Count Auto Diff 03/26/25 D64.9 - Anemia, unspecified Lipid Panel 03/26/25 E78.00 - Pure hypercholesterolemia, unspecified Liver Fibrosis Pnl 03/26/25 R79.89 - Other specified abnormal findings of blood chemistry UA CC w/rflx Micro + Cult 03/26/25 R30.0 - Dysuria Vitamin D 25-OH Total 03/26/25 E55.9 - Vitamin D deficiency, unspecified
== END 2025-03-26 17:08 | disposition home or self-care (01) ==
LOC: HO.HMCH 16:05
PROVIDERS: PCP Internal Medicine; Visit Provider Internal Medicine
DX: R73.01 Impaired fasting glucose (principal); R79.89 Other specified abnormal findings of blood chemistry; E66.9 Obesity, unspecified; Z68.32 Body mass index [BMI] 32.0-32.9, adult; R03.0 Elevated blood-pressure reading, without diagnosis of hypertension; E55.9 Vitamin D deficiency, unspecified; N20.0 Calculus of kidney; M51.360 Other intervertebral disc degeneration, lumbar region with discogenic back pain only; M19.011 Primary osteoarthritis, right shoulder; M79.671 Pain in right foot; M79.672 Pain in left foot

== ENCOUNTER → 2025-03-26 16:04 | Outpatient (BNVA) | payer OTHER, SELFPAY | PROVIDERS: PCP Internal Medicine; Visit Provider Internal Medicine | DX: R03.0 Elevated blood-pressure reading, without diagnosis of hypertension (principal); R79.89 Other specified abnormal findings of blood chemistry; R73.01 Impaired fasting glucose; E55.9 Vitamin D deficiency, unspecified; N20.0 Calculus of kidney; M51.360 Other intervertebral disc degeneration, lumbar region with discogenic back pain only; M19.011 Primary osteoarthritis, right shoulder; M79.671 Pain in right foot; M79.672 Pain in left foot; E66.9 Obesity, unspecified; Z68.32 Body mass index [BMI] 32.0-32.9, adult | CPT/HCPCS: 96127; 99212 ==

== ENCOUNTER 2025-04-11 08:15 | Outpatient (REF) | payer OTHER, SELFPAY ==
[2025-04-11 08:25] LABS: MANUAL DIFF FLAG NO
[2025-04-11 08:28] LABS: Hematocrit 44.8 % (42.0-52.0); Hemoglobin 15.3 g/dl (14.0-18.0); Imm Gran Abs Auto 0.01 X10*3/uL (0.00-0.03); Imm Gran Pct Auto 0.2 % (0.0-0.4); Lymphocytes Absolute Auto 1.7 X10*3/uL (1.2-4.9); Mean Corpuscular HGB Conc 34.2 g/dl (31.0-36.0); Mean Corpuscular Hemoglobin 31.0 pg (27.0-33.0); Mean Corpuscular Volume 90.9 fL (80.0-98.0); NRBC Abs Auto 0.000 X10*3/uL (0.0-0.012); NRBC Pct Auto 0.0 /100WBC (0.0-0.2); Platelet Count 169 X10*3/uL (160-400); Red Blood Count 4.93 X10*6/uL (4.60-5.80); White Blood Count 4.1 X10*3/uL (4.8-10.8)
[2025-04-11 08:48] LABS: Alanine Aminotransferase 126 U/L (0-40); Albumin Level 4.3 g/dL (3.5-5.0); Alkaline Phosphatase 98 U/L (39-117); Anion Gap 12 (12-20); Aspartate Amino Transferase 58 U/L (5-37); Blood Urea Nitrogen 16 mg/dL (9-16); Calcium 8.6 mg/dL (8.4-10.2); Carbon Dioxide 24 mmol/L (22-29); Chloride 111 mmol/L (96-108); Cholesterol 162 mg/dL (<200); Estimated Glomerular Filt Rate > 60; HDL Cholesterol 33 mg/dL (>40); Potassium 4.5 mmol/L (3.3-5.1); Sodium 142 mmol/L (135-145); Total Protein 7.2 g/dL (6.5-8.0); Triglycerides 117 mg/dL (<150)
[2025-04-11 09:27] LABS: Appearance Urine Turbid; Glucose Urine UA Negative (Negative); PH 5.5 (5.0-9.0); Specific Gravity - Urine >= 1.030 (1.005-1.025); UMIC TRIGGER UACC YES
[2025-04-22 00:13] LABS: FIB-ALT 86 U/L (9-46); FIB-Alpha-2-Macroglobulin 178 mg/dL (106-279); FIB-Apolipoprotein A1 134 mg/dL (94-176); FIB-GGT 17 U/L (3-95); FIB-Haptoglobin 59 mg/dL (43-212); FIB-Total Bilirubin 0.6 mg/dL (0.2-1.2); Liver Fibrosis Score 0.27; Liver Fibrosis Stage F0-F1; Nec Inflam Act Grade A1-A2; Nec Inflam Act Score 0.49
== END 2025-04-11 08:16 | disposition home or self-care (01) ==
LOC: HO.LAB 08:15
PROVIDERS: PCP Internal Medicine; Visit Provider Internal Medicine
DX: Z11.59 Encounter for screening for other viral diseases (principal); R79.89 Other specified abnormal findings of blood chemistry; E78.00 Pure hypercholesterolemia, unspecified; E55.9 Vitamin D deficiency, unspecified; D64.9 Anemia, unspecified
CPT/HCPCS: 36415; 80053; 80061; 81001; 81596; 82306; 84443; 85025

== ENCOUNTER 2025-06-22 11:05 | Outpatient (AMB) | payer OTHER, SELFPAY ==
[2025-06-22 11:33] VITALS: BP 142/94; PULSE 67; TEMP 36.7; O2SAT 95; BMI 33.0
--- NOTE | 2025-06-22 11:33 | A.OFFPC_ITS ---
Vital Signs 06/22/25 11:33 Height 6 ft 2 in Weight 257 lb BMI 33.0 BP 142/94 H Blood Pressure Location Lt brachial Position Sitting Pulse 67 Pulse Source Pulse Oximeter Temp 98.1 F Temp Source Temporal Artery Scan Pulse Oximetry (%) 95 Oxygen Delivery Method Room Air Intake Visit Reasons: Left swollen ankle Accompanied by: Significant Other Allergies No Known Allergies Allergy (Verified 06/22/25 11:33) Medication List - Last Reconciled 06/22/25 by Emir Munson MD cholecalciferol (vitamin D3) (Vitamin D3) 25 mcg PO DAILY Tobacco use date assessed: 03/26/25 Dental Screening Dental Screen Date: 03/26/25 Did you have a dental visit in the last 12 months?: Yes Did you have a dental problem in the last 6 months where you did not have access to dental care?: No Was dental information given to patient?: Patient has dentist HPI HPI Comments History of Present Illness Details The patient is a 50 year old individual presenting for evaluation of a left ankle injury that occurred at work on 06/18. The patient twisted the ankle and heard a crack at the time of the injury. Swelling developed after the patient removed work boots at home. The patient was limping the following day. For treatment, the patient has been using a topical analgesic, an ankle brace, and ibuprofen. The patient reports pain with [id number] and up-and-down movements of the foot. The patient denies any history of gout or prior episodes of foot swelling. He denies any fever and chills. The only medication the patient takes is vitamin D. [facility] Medical History Vitamin D deficiency Primary osteoarthritis of right shoulder Elevated LFTs Obesity (BMI 30-39.9) Nephrolithiasis Renal colic Surgical History History of dermoid cyst excision History of left inguinal hernia repair Hx of cystoscopy Family History Other Family history non-contributory Social History Housing: Condominium Alcohol intake: never Patient Tobacco Use Status: Never used Tobacco e-Cigarette/Vaping Use: Never Used Second Hand Smoke Exposure: No service: No Current occupational status: unemployed Cognitive needs: No Hearing needs: No Vision needs: No Questionnaire PHQ-9 Over the last 2 weeks, how often have you been bothered by any of the following problems? 1. Little interest or pleasure in doing things: several days 2. Feeling down, depressed, or hopeless: not at all 3. Trouble falling or staying asleep, or sleeping too much: several days 4. Feeling tired or having little energy: not at all 5. Poor appetite or overeating: not at all 6. Feeling bad about yourself - or that you are a failure or have let yourself or your family down: not at all 7. Trouble concentrating on things, such as reading the newspaper or watching television: not at all 8. Moving or speaking so slowly that other people could have noticed. Or the opposite - being so fidgety or restless that you have been moving around a lot more than usual: not at all 9. Thoughts that you would be better off or of hurting yourself in some way: not at all Total score: 2 Depression Screening Interpretation: Negative Depression Screening Done: Yes 03953 - PHQ-9 Billing: Yes Source: Developed by Drs. Pola Bliss, Chantelle Swartz, Cesar Boyd and colleagues, with an educational jonny from [employer] Thrive Questionnaire Date Thrive assessed: 11/26/24 I am a: Patient What is your living situation today?: I have a steady place to live Within the past 12 months, did the food you bought not last and you didn't have the money to get more?: I choose not to answer this question Within the past 12 months, did you worry whether your food would run out before you got money to buy more?: I choose not to answer this question Do you have trouble paying for medicines?: No Do you have trouble getting transportation to medical appointments?: No Do you have trouble paying your heating and electricity bill?: No Do you have trouble taking care of your child, family member or friend?: I choose not to answer this question Do you have trouble with day-to-day activities such as bathing, preparing meals, shopping, managing finances, etc.?: Yes Are you currently unemployed and looking for a job?: No Are you interested in more education?: No Please select the resources that you would like help with: None Currently or been in a relationship where the following occur: I choose not to answer THRIVE Score: 0 AUDIT C Alcohol Use Questionnaire (AUDIT-C) 1. How often do you have a drink containing alcohol?: Never 3. How often do you have six or more drinks on one occasion?: Never Total Score: 0 Score Reviewed/Action Taken: Yes MARSHA-7 AMB Questionnaire MARSHA-7 Date MARSHA - 7 assessed: 11/26/24 Feeling nervous, anxious, or on edge: 0 = Not at all Not being able to stop or control worryin = Several days Worrying too much about different things: 1 = Several days Trouble relaxin = Several days Being so restless that it is hard to sit still: 1 = Several days Becoming easily annoyed or irritable: 0 = Not at all Feeling afraid as if something awful might happen: 0 = Not at all Total MARSHA-7 score (0-4 normal; 5-9 mild; 10-14 moderate; 15-21 severe): 4 Source: Developed by Drs. Pola Bliss, Chantelle Swartz, Ceasr Boyd and colleagues, with an educational jonny from [employer] Review of Systems Const Details: As per HPI. Physical exam (Primary Care) Vital Signs: Last Vital Signs Temp 98.1 F 06/22/25 11:33 Pulse 67 06/22/25 11:33 BP 142/94 H 06/22/25 11:33 Pulse Ox 95 06/22/25 11:33 Oxygen Delivery Method Room Air 06/22/25 11:33 BMI result Body Mass Index 33.0 Tobacco/Smoking Status: Tobacco use Status Tobacco use date assessed 03/26/25 06/22/25 11:40 Patient Tobacco Use Status Never used Tobacco 06/22/25 11:40 e-Cigarette/Vaping Use Never Used 06/22/25 11:40 PHQ-9: PHQ-9 Score PHQ-9: Total score 2 06/22/25 11:40 Depression Screening Interpretation: Negative Thrive Assessment: Date of Thrive Assessment Date Thrive assessed 11/26/24 06/22/25 11:40 Currently or been in a relationship where the following occur: I choose not to answer Const Other: Pertinent findings are in BOLD GENERAL APPEARANCE NAD, activity normal for age, well developed/ well nourished, no cyanosis, pallor, or diaphoresis. EYES lids/conjunctiva normal. EARS/NOSE/THROAT Mucous membranes moist, nares normal, lips/teeth normal uvula midline without oral pharyngeal erythema, exudate or swelling TMs normal bilaterally. No lymphangitis/lymphedema. HEAD/NECK normocephalic atraumatic, no facial trauma, neck is supple. RESPIRATORY respiratory effort normal, speaks in full sentences, no tripod position, no accessory muscle use. Lungs clear to auscultation without rhonchi, wheezes, rales CARDIAC Regular rate and rhythm, no edema. ABDOMINAL Soft, ND/NT. No evidence of fluid wave. No pulsatile masses on exam, rebound tenderness, Millan sign or pain over Mcburney's point. MUSCLES/EXTREMITIES No abnormal range of motion. Left ankle swelling, non tender to palpation. SKIN Warm, pink and dry. No rashes, dermatoses, petechiae or lesions. NEUROLOGICAL Speech is clear and appropriate. Normal level of consciousness. Gait and coordination are normal. 5/5 strength in all extremities. PSYCH Normal mood and affect. Judgement/competence is appropriate Coding Level of Care Code Est Pt Level 3 (72029) Diagnoses Strain of left ankle, initial encounter S96.912A Encounter type: initial encounter Additional Codes PHQ-9 - 21442 - PHQ-9 Billing: Yes ([id number]) Time Spent (min) 30 Assessment & Plan Assessment & Plan (1) Left ankle strain: Code(s): S96.912A - Strain of unspecified muscle and tendon at ankle and foot level, left foot, initial encounter Category: Medical Qualifiers: Encounter type: initial encounter Qualified Code(s): S96.912A - Strain of unspecified muscle and tendon at ankle and foot level, left foot, initial encounter Plan: - The patient presents with a left ankle injury sustained at work, characterized by twisting, a cracking sound, and subsequent swelling. - An X-ray of the left foot will be obtained to rule out a fracture. - If the X-ray is negative for fracture, the patient is advised to continue using the ankle brace, take ibuprofen, and rest the ankle by avoiding overexertion. - Reassurance was provided that swelling is a common finding in ankle sprains, even in the absence of a fracture, and that the injury will require time to heal. Plan I have discussed with the patient the plan to obtain an X-ray of the left foot to evaluate for a possible fracture after a twisting injury. I explained that swelling can occur with this type of injury even if there is no fracture. If no fracture is identified, I recommended continuing with the current management, including the use of a brace, ibuprofen, and avoiding overuse of the ankle, emphasizing that it will need time to heal. Orders: Orders XR ankle LT 2V Today S96.912A - Strain of unspecified muscle and tendon at ankle and foot level, left foot, initial encounter
== END 2025-06-22 11:56 | disposition home or self-care (01) ==
LOC: HO.HMCH 11:05
PROVIDERS: PCP Internal Medicine; Visit Provider Internal Medicine
DX: S96.912A Strain of unspecified muscle and tendon at ankle and foot level, left foot, initial encounter (principal)

== ENCOUNTER 2025-06-22 11:05 | Outpatient (REF) | payer OTHER, SELFPAY ==
--- NOTE | ~2025-06-22 | XR_ITS ---
EXAMINATION: XR ANKLE 3 OR MORE VIEWS LEFT HISTORY: S96.912A - Strain of unspecified muscle and tendon at ankle and foot level... COMPARISON: There are no prior studies available for comparison. FINDINGS: Three views of the left ankle are submitted. Osseous mineralization is normal. There is no fracture or dislocation. The joint spaces are preserved. The soft tissues are unremarkable. XR/XR ankle LT min 3V IMPRESSION: Unremarkable examination of the left ankle. Electronically signed by: Pola Jj MD 06/22/2025 12:50 PM EST
== END 2025-06-22 11:06 | disposition home or self-care (01) ==
LOC: HO.XRAY 11:05
PROVIDERS: PCP Internal Medicine; Visit Provider Internal Medicine
DX: S96.912A Strain of unspecified muscle and tendon at ankle and foot level, left foot, initial encounter (principal); Z79.899 Other long term (current) drug therapy
CPT/HCPCS: 73610

== ENCOUNTER → 2025-06-22 12:14 | Outpatient (BNV) | payer OTHER, SELFPAY | PROVIDERS: PCP Internal Medicine; Visit Provider Radiology Diagnostic Radiology | DX: S96.912A Strain of unspecified muscle and tendon at ankle and foot level, left foot, initial encounter (principal) | CPT/HCPCS: 73610 ==

== ENCOUNTER 2025-07-14 16:31 | Outpatient (AMB) | payer OTHER, SELFPAY ==
[2025-07-14 17:03] VITALS: BP 136/88; PULSE 66; RESP 18; O2SAT 97; BMI 33.2
--- NOTE | 2025-07-14 17:03 | A.OFFPC_ITS ---
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 Accompanied by: Self / Same As Patient Allergies No Known Allergies Allergy (Verified 07/14/25 17:30) Medication List - Last Reconciled 07/14/25 by Tunde Seymour MD cholecalciferol (vitamin D3) (Vitamin D3) 25 mcg PO DAILY Tobacco use date assessed: 07/14/25 Dental Screening Dental Screen Date: 07/14/25 Did you have a dental visit in the last 12 months?: Yes Did you have a dental problem in the last 6 months where you did not have access to dental care?: No Was dental information given to patient?: Patient has dentist HPI 4 Months HPI Details Patient comes in today for his follow up visit States that he feels okay but has had a recurrent cough for several days now States that he has also recently been coughing up yellowish phlegm and that his cough seems to be worse at night He denies any fever or sore throat; denies any headaches or dizziness Denies any chest pains, no SOB No nausea/vomiting, no abdominal pain No change in bowel habits noted He has his follow up labs done a few months ago - to discuss his results Adds that he was seen by ophthalmology at [facility] in [place] back in late March 2025 for his worsening eye symptoms, especially his blurring of vision and was diagnosed with (+) pterygium bilaterally, R>L, as well as moderate astigmatism and was recommended to undergo surgical removal of the pterygium with conjunctival grafting - states that this has not been scheduled yet and he is still waiting to hear back from his eye doctor regarding this [facility] Medical History (Updated 07/15/25 @ 13:04 by Tunde Seymour MD) Pterygium of both eyes Vitamin D deficiency Primary osteoarthritis of right shoulder Elevated LFTs Obesity (BMI 30-39.9) Nephrolithiasis Renal colic Surgical History History of dermoid cyst excision History of left inguinal hernia repair Hx of cystoscopy Family History Other Family history non-contributory Social History Housing: Condominium Alcohol intake: never Patient Tobacco Use Status: Never used Tobacco e-Cigarette/Vaping Use: Never Used Second Hand Smoke Exposure: No service: No Current occupational status: unemployed Cognitive needs: No Hearing needs: No Vision needs: No Questionnaire Thrive Questionnaire Date Thrive assessed: 07/14/25 What is your living situation today?: I have a steady place to live Within the past 12 months, did the food you bought not last and you didn't have the money to get more?: I choose not to answer this question Within the past 12 months, did you worry whether your food would run out before you got money to buy more?: I choose not to answer this question Do you have trouble paying for medicines?: No Do you have trouble getting transportation to medical appointments?: No Do you have trouble paying your heating and electricity bill?: No Do you have trouble taking care of your child, family member or friend?: I choose not to answer this question Do you have trouble with day-to-day activities such as bathing, preparing meals, shopping, managing finances, etc.?: Yes Are you currently unemployed and looking for a job?: No Are you interested in more education?: No Please select the resources that you would like help with: None Currently or been in a relationship where the following occur: I choose not to answer THRIVE Score: 0 MARSHA-7 AMB Questionnaire MARSHA-7 Date MARSHA - 7 assessed: 11/26/24 Source: Developed by Drs. Pola Bliss, Chantelle Swartz, Cesar Boyd and colleagues, with an educational jonny from [employer]. Review of Systems Const Denies chills, Denies fatigue, Denies fever(s) and Denies headache(s) Eyes Reports blurry vision ENT Denies dysphagia, Denies dizziness, Denies otalgia, Denies headache(s), Reports nasal congestion (mild), Denies neck pain, Denies odynophagia and Denies sore throat Card Denies chest pain, Denies irregular heart rhythm, Denies palpitations and Denies dyspnea Resp Denies chest congestion, Reports cough (recurrent; worse at night; coughing up yellowish phlegm lately), Denies dyspnea and Denies wheezing GI Denies abdominal pain, Denies constipation, Denies dysphagia, Denies heartburn, Denies diarrhea, Denies nausea, Denies odynophagia and Denies vomiting Denies hematuria, Denies difficulty urinating, Denies dysuria, Denies nocturia and Denies urinary frequency Musc Reports back pain (over the right lower back ), Reports arthralgias (around the right hip area), Denies neck pain and Reports numbness (right leg goes numb at times ) Skin/Breast Denies rash Neuro Denies dizziness, Denies headache(s), Reports numbness (right leg goes numb at times ) and Denies paresthesias Endo Denies fatigue and Denies palpitations Aller/Immun Denies wheezing Physical exam (Primary Care) Vital Signs: Last Vital Signs Pulse 66 07/14/25 17:03 Resp 18 07/14/25 17:03 BP 136/88 07/14/25 17:03 Pulse Ox 97 07/14/25 17:03 Oxygen Delivery Method Room Air 07/14/25 17:03 BMI result Body Mass Index 33.2 Tobacco/Smoking Status: Tobacco use Status Tobacco use date assessed 07/14/25 07/14/25 17:11 Patient Tobacco Use Status Never used Tobacco 07/14/25 17:11 e-Cigarette/Vaping Use Never Used 07/14/25 17:11 Thrive Assessment: Date of Thrive Assessment Date Thrive assessed 07/14/25 07/14/25 17:11 Currently or been in a relationship where the following occur: I choose not to answer Const General: no acute distress and alert HENMT Ears: TM's normal bilaterally and EAC's normal Face and sinus: Yes sinuses nontender Throat: Yes tonsils normal (no TP congestion), Yes posterior oropharynx abnormal ((+) mild erythema of the posterior pharynx) and No postnasal drainage Neck Neck: Yes supple and No lymphadenopathy Thyroid: Thyroid normal Resp Auscultation: clear to auscultation bilaterally, no crackles, no rales and no wheezes Cardio Rate: regular rate Rhythm: regular rhythm Heart sounds: no murmurs GI Palpation (GI): Soft to palpation and nontender Auscultation: normal bowel sounds General: Yes no CVA tenderness Back/Spine/Pelvis Back: no CVA tenderness Thoracic/Lumbar Spine: No thoracic spinal tenderness and lumbar spinal tenderness (tenderness is mostly to the right side of the lumbar spine at L1-L2) Skin Rashes: no rashes Extrem General: Yes no clubbing, cyanosis or edema Right lower extremity: hip/thigh Details: tenderness Location: of the hip Location: anterolaterally Results Reviewed Results Reviewed: Laboratory Tests 04/11/25 04/11/25 08:22 08:23 WBC 4.1 L Hgb 15.3 Hct 44.8 Plt Count 169 Sodium 142 Potassium 4.5 D Creatinine 0.90 Estimated GFR > 60 Fasting Glucose 108 H Calcium 8.6 AST 58 H ALT 126 H Liver GGT 17 Liver Fibrosis ALT 86 H Liver Fibrosis Stage F0-F1 Triglycerides 117 Cholesterol 162 LDL Cholesterol, Calc 106 H HDL Cholesterol 33 L 25-OH Vitamin D Total 13.6 L TSH 2.51 Ur Specific Dyke >= 1.030 H Urine Protein 30 (1+) H Urine Glucose (UA) Negative Urine Blood Negative Urine Nitrite Negative Ur Leukocyte Esterase Negative Coding Level of Care Code Est Pt Level 4 (29169) Diagnoses Elevated LFTs R79.89 Elevated blood pressure reading in office without diagnosis of hypertension R03.0 Impaired fasting glucose R73.01 Vitamin D deficiency E55.9 Nephrolithiasis N20.0 Respiratory tract infection J98.8 Pterygium of both eyes H11.003 Degeneration of intervertebral disc of lumbar region with discogenic back pain M51.360 Disc-related pain type: discogenic back pain only Primary osteoarthritis of right shoulder M19.011 Bilateral foot pain M79.671; M79.672 Obesity (BMI 30-39.9) E66.9 Assessment & Plan Assessment & Plan (1) Elevated LFTs: Code(s): R79.89 - Other specified abnormal findings of blood chemistry Category: Medical Plan: Patient's LFTs have been elevated for a while now and these have gone up further from his labs done a few months ago We sent him previously for abdominal US for further evaluation and he is now scheduled for this on 07/29/2025 We also send him for some repeat labs, including a liver fibrosis panel, for further work ups - his liver fibrosis stage is currently at F0-F1 Will send him for some additional labs today for further evaluation (2) Elevated blood pressure reading in office without diagnosis of hypertension: Code(s): R03.0 - Elevated blood-pressure reading, without diagnosis of hypertension Category: Medical Plan: Reinforced low sodium diet - advised that systolic BP should be 120 mm or less to be considered normal He has again been advised that losing weight may help with his blood pressure His BP appears to be better controlled today than it was a few months ago and he is reminded to try to monitor his blood pressure regularly (3) Impaired fasting glucose: Code(s): R73.01 - Impaired fasting glucose Category: Medical Plan: His FBS was slightly high at 108 mg/dl today Reinforced low calorie/low carb diet Will recheck his FBS and also his HgbA1c for follow-up/further evaluation (4) Vitamin D deficiency: Code(s): E55.9 - Vitamin D deficiency, unspecified Category: Medical Plan: He is advised that his Vitamin D level was still low on his labs done a few months ago Will increase his Vitamin D3 to 2000 units QD (5) Nephrolithiasis: Comment: S/P stenting (left) Code(s): N20.0 - Calculus of kidney Category: Medical Plan: Follow up with urology as scheduled for continuing management (6) Respiratory tract infection: Code(s): J98.8 - Other specified respiratory disorders Category: Medical Plan: He is advised that he likely has an upper respiratory tract infection Will start him empirically on Azithromycin QD x 5 days He can continue taking OTC cough/cold meds PRN for symptomatic relief (7) Pterygium of both eyes: Comment: OD>OS Code(s): H11.003 - Unspecified pterygium of eye, bilateral Category: Medical Plan: He was seen for [facility] by the [facility] and has been recommended for surgical excision of the pterygium and conjunctival grafting - he is still waiting for this to be scheduled Follow up with ophthalmology as scheduled (8) Lumbar degenerative disc disease: Code(s): M51.369 - Other intervertebral disc degeneration, lumbar region without mention of lumbar back pain or lower extremity pain Category: Medical Qualifiers: Disc-related pain type: discogenic back pain only Qualified Code(s): M51.360 - Other intervertebral disc degeneration, lumbar region with discogenic back pain only Plan: Reinforced activity and weight-lifting restrictions X-rays of the lumbar spine done back in January 2024 revealed (+) mild to moderate multilevel degenerative disc disease, with normal alignment and no fracture He was referred to physical therapy, which he states have helped a lot with his low back pain (9) Primary osteoarthritis of right shoulder: Code(s): M19.011 - Primary osteoarthritis, right shoulder Category: Medical Plan: X-rays of the right shoulder done back in January 2024 revealed (+) mild acromioclavicular and glenohumeral osteoarthritis with a lateral subacromial spur Follow up with orthopedics as scheduled (10) Bilateral foot pain: Code(s): M79.671 - Pain in right foot; M79.672 - Pain in left foot Category: Medical Plan: X-rays of both feet done back in May 2024 revealed (+) 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 Follow up with podiatry as scheduled (11) Obesity (BMI 30-39.9): Code(s): E66.9 - Obesity, unspecified Category: Medical Plan: Reinforce diet/exercise as tolerated/lose weight Plan Follow up in 3 months Orders: Orders Comprehensive [place]. Panel Fast 07/14/25 E78.00 - Pure hypercholesterolemia, unspecified, R79.89 - Other specified abnormal findings of blood chemistry Lipid Panel 07/14/25 E78.00 - Pure hypercholesterolemia, unspecified, R79.89 - Other specified abnormal findings of blood chemistry TSH reflex Free T4 07/14/25 E78.00 - Pure hypercholesterolemia, unspecified, R79.89 - Other specified abnormal findings of blood chemistry UA CC w/rflx Micro + Cult 07/14/25 R30.0 - Dysuria, R79.89 - Other specified abnormal findings of blood chemistry Complete Blood Count Auto Diff 07/14/25 D64.9 - Anemia, unspecified, R79.89 - Other specified abnormal findings of blood chemistry Vitamin D 25-OH Total 07/14/25 E55.9 - Vitamin D deficiency, unspecified, R79.89 - Other specified abnormal findings of blood chemistry Monotest 07/14/25 R79.89 - Other specified abnormal findings of blood chemistry Hepatitis A,B,C Profile 07/14/25 R79.89 - Other specified abnormal findings of blood chemistry Hemoglobin A1c 07/14/25 R73.01 - Impaired fasting glucose Medications: New azithromycin take 500 mg today (day 1), then 250 mg for 4 days (days 2-5) PO 6 tabs 0RF Changed From cholecalciferol (vitamin D3) (Vitamin D3) 25 mcg PO DAILY 90 caps 0RF To cholecalciferol (vitamin D3) 2,000 units PO DAILY 90 caps 3RF 90 days
== END 2025-07-14 17:43 | disposition home or self-care (01) ==
PROVIDERS: PCP Internal Medicine; Visit Provider Internal Medicine
DX: R79.89 Other specified abnormal findings of blood chemistry (principal); R03.0 Elevated blood-pressure reading, without diagnosis of hypertension; E66.9 Obesity, unspecified; Z68.33 Body mass index [BMI] 33.0-33.9, adult; R73.01 Impaired fasting glucose; E55.9 Vitamin D deficiency, unspecified; N20.0 Calculus of kidney; J98.8 Other specified respiratory disorders; H11.003 Unspecified pterygium of eye, bilateral; M51.360 Other intervertebral disc degeneration, lumbar region with discogenic back pain only; M19.011 Primary osteoarthritis, right shoulder; M79.671 Pain in right foot; M79.672 Pain in left foot

== ENCOUNTER → 2025-07-14 16:31 | Outpatient (BNVA) | payer OTHER, SELFPAY | PROVIDERS: PCP Internal Medicine; Visit Provider Internal Medicine | DX: R03.0 Elevated blood-pressure reading, without diagnosis of hypertension (principal); R79.89 Other specified abnormal findings of blood chemistry; R73.01 Impaired fasting glucose; E55.9 Vitamin D deficiency, unspecified; N20.0 Calculus of kidney; J98.8 Other specified respiratory disorders; H11.003 Unspecified pterygium of eye, bilateral; M51.360 Other intervertebral disc degeneration, lumbar region with discogenic back pain only; M19.011 Primary osteoarthritis, right shoulder; M79.671 Pain in right foot; M79.672 Pain in left foot | CPT/HCPCS: 99212 ==

== ENCOUNTER 2025-07-24 08:55 | Outpatient (REF) | payer OTHER, SELFPAY ==
[2025-07-24 09:11] LABS: MANUAL DIFF FLAG NO
[2025-07-24 09:30] LABS: Hematocrit 48.8 % (42.0-52.0); Hemoglobin 16.0 g/dl (14.0-18.0); Imm Gran Abs Auto 0.02 X10*3/uL (0.00-0.03); Imm Gran Pct Auto 0.4 % (0.0-0.4); Lymphocytes Absolute Auto 1.7 X10*3/uL (1.2-4.9); Mean Corpuscular HGB Conc 32.8 g/dl (31.0-36.0); Mean Corpuscular Hemoglobin 29.6 pg (27.0-33.0); Mean Corpuscular Volume 90.2 fL (80.0-98.0); NRBC Abs Auto 0.000 X10*3/uL (0.0-0.012); NRBC Pct Auto 0.0 /100WBC (0.0-0.2); Platelet Count 202 X10*3/uL (160-400); Red Blood Count 5.41 X10*6/uL (4.60-5.80); White Blood Count 4.7 X10*3/uL (4.8-10.8)
[2025-07-24 10:09] LABS: Appearance Urine Clear; Glucose Urine UA Negative (Negative); PH 5.0 (5.0-9.0); Specific Gravity - Urine 1.025 (1.005-1.025)
[2025-07-24 10:11] LABS: Alanine Aminotransferase 172 U/L (0-40); Albumin Level 4.5 g/dL (3.5-5.0); Alkaline Phosphatase 96 U/L (39-117); Anion Gap 11 (12-20); Aspartate Amino Transferase 74 U/L (5-37); Blood Urea Nitrogen 16 mg/dL (9-16); Calcium 9.0 mg/dL (8.4-10.2); Carbon Dioxide 23 mmol/L (22-29); Chloride 111 mmol/L (96-108); Cholesterol 198 mg/dL (<200); Estimated Glomerular Filt Rate > 60; HDL Cholesterol 35 mg/dL (>40); Potassium 5.0 mmol/L (3.3-5.1); Sodium 140 mmol/L (135-145); Total Protein 7.3 g/dL (6.5-8.0); Triglycerides 138 mg/dL (<150)
[2025-07-24 10:25] LABS: HBS Num1 0.00 mIU/mL (0-7.99); HBc Num1 0.07 S/CO (0.00-0.79); HBsAGNum1 0.33 S/CO (0.00-0.99); Hepatitis A Antibody IgM 0.16 Index (0-0.79); Hepatitis B Surface Antigen Negative (Negative); ~HepC Num1 0.22 S/CO (0.00-0.79); ~Hepatitis A Antibody IgM Nonreactive (Nonreactive); ~Hepatitis B Surface Antibody NONREACTIVE (Nonreactive); ~Hepatitis C Antibody Nonreactive (Nonreactive)
== END 2025-07-24 08:56 | disposition home or self-care (01) ==
LOC: HO.LAB 08:55
PROVIDERS: PCP Internal Medicine; Visit Provider Internal Medicine
DX: E78.00 Pure hypercholesterolemia, unspecified (principal); D64.9 Anemia, unspecified; E55.9 Vitamin D deficiency, unspecified; R79.89 Other specified abnormal findings of blood chemistry; R73.01 Impaired fasting glucose; R30.0 Dysuria
CPT/HCPCS: 36415; 80053; 80061; 81003; 82306; 83036; 84443; 85025; 86308; 86704; 86706; 86709; 86803; 87340

== ENCOUNTER 2025-07-29 10:02 | Outpatient (REF) | payer OTHER, SELFPAY ==
--- NOTE | ~2025-07-29 | US_ITS ---
EXAMINATION: US ABDOMEN HISTORY: R79.89 - Other specified abnormal findings of blood chemistry TECHNIQUE: Real-time grayscale ultrasound imaging of the abdomen was performed and images were reviewed. COMPARISON: Correlation is made with an unenhanced CT of the abdomen dated 06/08/2023. FINDINGS: Liver: The right lobe of the liver measures 16.1 cm in size. The left lobe of the liver measures 10.7 cm in size. The liver demonstrates increased echotexture, consistent with steatosis. There is a 1.4 x 1.1 x 1.2 cm cyst in the left lobe. No intrahepatic biliary ductal dilatation is identified. There is normal hepatopedal flow in the portal vein. Gallbladder and biliary tree: The gallbladder is unremarkable, without evidence of calculi, wall thickening, or pericholecystic fluid. There is no sonographic Millan sign. The common bile duct is normal in caliber measuring 3 mm in diameter. Kidneys: The right kidney measures 12.4 cm in length and demonstrates parapelvic cysts measuring up to 1.4 x 0.9 x 0.8 cm. The left kidney measures 13.0 cm in length and demonstrates parapelvic cysts measuring up to 1.8 x 3.3 x 1.5 cm. The kidneys are otherwise unremarkable, without evidence of solid masses, hydronephrosis, or calculi. Pancreas: The pancreatic head, neck, and body are unremarkable. The pancreatic tail is obscured by bowel gas. Spleen: The spleen is normal in size and contour, measuring 11.6 cm in length. Abdominal aorta and inferior vena cava: The visualized portions of the abdominal aorta and inferior vena cava are normal in caliber. There is no free fluid in the abdomen. US/US abdomen complete IMPRESSION: 1. Hepatic steatosis. 2. Bilateral renal parapelvic cysts as described. Electronically signed by: Pola jJ MD 07/29/2025 11:22 AM EST
== END 2025-07-29 10:03 | disposition home or self-care (01) ==
LOC: HO.US 10:02
PROVIDERS: PCP Internal Medicine; Visit Provider Internal Medicine
DX: R79.89 Other specified abnormal findings of blood chemistry (principal)
CPT/HCPCS: 76700

== ENCOUNTER → 2025-07-29 10:04 | Outpatient (BNV) | payer OTHER, SELFPAY | PROVIDERS: PCP Internal Medicine; Visit Provider Radiology Diagnostic Radiology | DX: N28.1 Cyst of kidney, acquired (principal); K76.0 Fatty (change of) liver, not elsewhere classified | CPT/HCPCS: 76700 ==